=== PATIENT | male | born 1985 | race Two or more races ===

== ENCOUNTER 2019-10-29 13:21 | Inpatient (IN) | payer OTHER ==
[~2019-10-29] VITALS: Ht 167.6 cm; Wt 57.7 kg
[~2019-10-29 13:21] MED LIST: ATO40T PO; INSLANTI SC; LEVO500T21 PO; PANT40TA2 PO
[2019-10-29] MEDS ORDERED: PROMETHAZINE HCL 25 MG/ML 1ML IV ONE (13:45)
[2019-10-29] MEDS ORDERED: SODIUM CHLORIDE 0.9% 1,000 ML IV ONE ×3 (13:45→16:30)
[2019-10-29] MEDS ORDERED: MORPHINE SULF INJ 2 MG/ML SYRINGE 1ML IV ONE (13:45)
[2019-10-29] MEDS ORDERED: PROMETHAZINE HCL 25 MG/ML 1ML ONE (13:46)
[2019-10-29 14:09] LABS: Basophils # (auto) 0.1 10 ^3/uL (0-0.2); Basophils % (auto) 0.4 % (0.0-2.0); Eosinophils # (auto) 0 10 ^3/uL (0-0.8); Hemoglobin 16.2 g/dL (13.5-17.5); Lymphocytes # (auto) 1.2 10 ^3/uL (0.4-5.4); Lymphocytes % (auto) 5.5 % (10.0-50.0); Mean Corpuscular Hgb Conc. 34.5 g/dL (32.0-36.0); Mean Corpuscular Volume 89.7 fL (80.0-100.0); Monocytes # (auto) 2.5 10 ^3/uL (0-1.3); Monocytes % (auto) 11.4 % (0.0-12.0); Neutrophils # (auto) 18.2 10 ^3/uL (1.6-8.6); Neutrophils % (auto) 82.7 % (37.0-80.0); Platelet Count (auto) 312 10^3/uL (140-450); Red Blood Cells 5.24 10^6/uL (4.5-5.90); Red Cell Distribution Width 12.8 % (11.8-14.3); White Blood Cell 22.1 10^3/uL (4.4-10.8)
[2019-10-29 14:25] LABS: Albumin 3.7 g/dL (3.4-5.0); Anion Gap 18 (5-15); Calcium 9.1 mg/dL (8.5-10.1); Carbon Dioxide 26 mmol/L (21-32); Chloride 88 mmol/L (98-107); Magnesium 1.5 mg/dL (1.6-2.6); Potassium 3.3 mmol/L (3.5-5.1); Sodium 132 mmol/L (136-145)
[2019-10-29 14:28] LABS: Alanine Aminotransferase 53 U/L (16-61); Aspartate Aminotransferase 13 U/L (15-37); Bilirubin, Total 2.6 mg/dL (0.2-1.0); GFR African American 90 mL/min; GFR Non-African American 74 mL/min; Total Protein 8.3 g/dL (6.4-8.2)
[2019-10-29 14:29] LABS: INR 1.06 (0.9-1.15); Partial Thromboplastin Time 26.3 sec (23.64-32.05)
[2019-10-29] MEDS ORDERED: InsuLIN R (HUMAN) 100 UNITS in SODIUM CHL 0.9% 99 ML IV SCH (14:33)
[2019-10-29 14:34] LABS: Alkaline Phosphatase 120 U/L (45-117)
[2019-10-29] MEDS ORDERED: DEXTROSE (50%) 50ML SYRG IV PRN ×2 (14:45→16:30)
[2019-10-29 14:52] LABS: Glucose 515 mg/dL (74-106)
[2019-10-29] MEDS: SODIUM CHLORIDE 0.9% 1,000 ML IV SCH ×2 (14:59→16:34)
[2019-10-29] MEDS ORDERED: ONDANSETRON HCL 4 MG/2 ML VIAL IV ONE (15:15)
[2019-10-29] MEDS ORDERED: PANTOPRAZOLE 40 MG/10 ML VIAL INJ IV ONE ×2 (15:15→16:30)
[2019-10-29] MEDS: ACCU-CHEK COMFORT CURVE STRIP VI SCH ×5 (15:25→23:38)
[2019-10-29 15:36] LABS: BUN/Creatinine Ratio 9.1; Blood Urea Nitrogen 11 mg/dL (7-18)
[2019-10-29] MEDS ORDERED: LACTULOSE 20Gm/30ML SOLN PO PRN (16:30)
[2019-10-29] MEDS ORDERED: cefTRIAXone 1GM/50ML D5W 50 ML IV ONE ×2 (16:30→16:36)
[2019-10-29] MEDS ORDERED: MORPHINE SULF INJ 2 MG/ML SYRINGE 1ML IV PRN (16:30)
[2019-10-29] MEDS ORDERED: NITROGLYCERIN 0.4 MG SL TAB SL PRN (16:30)
[2019-10-29] MEDS: SOD CHL 0.9%/ KCL 40MEQ 1,000 ML IV SCH (16:30)
[2019-10-29] MEDS ORDERED: INSULIN LANTUS (GLARGINE) 1 /0.01ml (100units/ml) SC ONE (16:30)
[2019-10-29] MEDS ORDERED: ALBUTEROL SULF 2.5 MG/0.5ML(0.5%) NEB SOLN NEB PRN (16:30)
[2019-10-29] MEDS ORDERED: MAGNESIUM SULFATE 1GM/100ML 100 ML IV ONE (17:01)
[2019-10-29] MEDS: MAGNESIUM SULFATE 1GM/100ML 100 ML IV SCH ×2 (17:04→18:02)
[2019-10-29] MEDS: LORazepam 2MG/ML-1ML VIAL IV PRN (17:14)
[2019-10-29] MEDS: MORPHINE SULF INJ 2 MG/ML SYRINGE 1ML IV PRN (17:22)
[2019-10-29] MEDS ORDERED: THIAMINE 100mg/ml INJ (200mg/2ml VIAL) IV ONE (17:45)
[2019-10-29] MEDS ORDERED: chlordiazePOXIDE HCL 25 MG CAP PO PRN (17:45)
[2019-10-29] MEDS ORDERED: chlordiazePOXIDE HCL 5 MG CAP PO ONE (17:45)
[2019-10-29 18:11] LABS: Alcohol, Urine < 3.0 mg/dL (0-5); Amphetamine Screen, Urine POSITIVE (NEGATIVE); Barbiturate Scree,Urine NEGATIVE (NEGATIVE); Benzodiazephine Screen, Urine NEGATIVE (NEGATIVE); Cannabinoid Screen, Urine NEGATIVE (NEGATIVE); Cocaine Screen, Urine NEGATIVE (NEGATIVE); Opiate Scree,Urine NEGATIVE (NEGATIVE); Urine Bacteria NONE SEEN /hpf (None Seen); Urine Blood Negative /uL (Negative); Urine WBC 14 /hpf (0 - 3)
[2019-10-29 18:18] LABS: Phencyclidine Screen, Urine NEGATIVE (NEGATIVE)
[2019-10-29] MEDS ORDERED: ACETAMINOPHEN 650 mg PER 20 mL UD ONE (18:30)
[2019-10-29] MEDS: ACETAMINOPHEN 325 MG TAB PO PRN ×2 (18:33→22:22)
[2019-10-29] MEDS ORDERED: SODIUM CHLORIDE 0.9% 1,000 ML IV SCH ×2 (18:33→20:33)
[2019-10-29 19:15] LABS: Hematocrit 40.6 % (41.0-53.0)
[2019-10-29] MEDS: InsuLIN REG 1unit/0.01ml Soln (100units/ml) SC SCH ×2 (21:19→23:40)
[2019-10-29 22:01] LABS: BUN/Creatinine Ratio 7.7; Calcium 8.5 mg/dL (8.5-10.1); Potassium 4.1 mmol/L (3.5-5.1)
[2019-10-29] MEDS: metroNIDAZOLE 500MG/100ML 100 ML IV SCH (22:20)
[2019-10-29] MEDS: PANTOPRAZOLE 40 MG/10 ML VIAL INJ IV SCH (22:21)
[2019-10-29] MEDS: INSULIN LANTUS (GLARGINE) 1 /0.01ml (100units/ml) SC SCH (22:22)
--- NOTE | 2019-10-29 22:39 | NUR ---
RT NOTE: PT ON ROOM AIR SPO2 98% HR 132, RR 20. BS DIMINISHED. PT DENIES SOB. NO TX GIVEN AT THIS TIME. MED NEB TX SETUP PLACED AT BEDSIDE IF NEEDED.
[2019-10-29] MEDS: chlordiazePOXIDE HCL 5 MG CAP PO SCH (23:39)
[2019-10-30] VITALS (7 sets, daily range): BP systolic 100–150; BP diastolic 57–98
[2019-10-30] MEDS: SOD CHL 0.9%/ KCL 40MEQ 1,000 ML IV SCH ×4 (00:56→20:13)
[2019-10-30] MEDS: traMADol HCL 50 MG TAB PO PRN (01:51)
[2019-10-30 02:09] LABS: Hematocrit 40.3 % (41.0-53.0); Hemoglobin 13.5 g/dL (13.5-17.5)
[2019-10-30] MEDS: MORPHINE SULF INJ 2 MG/ML SYRINGE 1ML IV PRN (02:10)
[2019-10-30] MEDS: LORazepam 2MG/ML-1ML VIAL IV PRN (02:11)
[2019-10-30] MEDS: PROMETHAZINE HCL 25 MG/ML 1ML IV PRN (02:11)
[2019-10-30 02:27] LABS: Calcium 8.4 mg/dL (8.5-10.1); Potassium 3.9 mmol/L (3.5-5.1)
[2019-10-30] MEDS: InsuLIN REG 1unit/0.01ml Soln (100units/ml) SC SCH ×6 (04:00→23:55)
--- NOTE | 2019-10-30 04:28 | NUR ---
Admit to [facility] MISHAFLORIN AntonioGO admitted to [facility] via jose on dinkey operator slate. Patient transferred to bed, connected to unit monitoring and oxygen, and weighed by bed scale. Patient oriented to Vandana richter RN, unit, room. Pt was very drowsy and slurred speech. Pt received Ativan and Morphine prior admission, in ER. Will give more information to patient when Pt wake up more.
[2019-10-30] MEDS: ACCU-CHEK COMFORT CURVE STRIP VI SCH ×6 (04:57→23:54)
--- NOTE | 2019-10-30 06:05 | NUR ---
Summary Pt still drowsy, woke up and asked for pain medicine right away and slept right away. Pt still easily fell asleep. Attempted to ask admission questions as many as possible. Pt with slurred speech, A&O x1 to self. Pt tried to pull NG once, re-oriented Pt. Continue care and will endorse to day nurse. IV insertion IV access obtained, via clean sterile technique by inserting 20 gauge catheter at left hand after 1 attempt(s) for antibiotic. IV secured properly. No trauma to site. Patient tolerated procedure well.
[2019-10-30] MEDS: metroNIDAZOLE 500MG/100ML 100 ML IV SCH ×3 (06:33→22:12)
[2019-10-30] MEDS: chlordiazePOXIDE HCL 5 MG CAP PO SCH ×4 (06:37→23:53)
[2019-10-30] MEDS: INSULIN LANTUS (GLARGINE) 1 /0.01ml (100units/ml) SC SCH ×2 (07:00→23:10)
[2019-10-30] MEDS: THIAMINE 100mg/ml INJ (200mg/2ml VIAL) IV SCH (09:16)
[2019-10-30] MEDS: PANTOPRAZOLE 40 MG/10 ML VIAL INJ IV SCH ×2 (09:16→22:13)
[2019-10-30] MEDS: cefTRIAXone 1GM/50ML D5W 50 ML IV SCH (09:17)
[2019-10-30 09:28] LABS: Basophils # (auto) 0 10 ^3/uL (0-0.2); Basophils % (auto) 0.3 % (0.0-2.0); Eosinophils # (auto) 0 10 ^3/uL (0-0.8); Hematocrit 41.1 % (41.0-53.0); Hemoglobin 13.9 g/dL (13.5-17.5); Lymphocytes % (auto) 6.3 % (10.0-50.0); Mean Corpuscular Hemoglobin 30.6 pg (28.0-32.0); Mean Corpuscular Hgb Conc. 33.8 g/dL (32.0-36.0); Mean Corpuscular Volume 90.5 fL (80.0-100.0); Monocytes # (auto) 1.7 10 ^3/uL (0-1.3); Monocytes % (auto) 10.2 % (0.0-12.0); Neutrophils # (auto) 13.4 10 ^3/uL (1.6-8.6); Neutrophils % (auto) 83.2 % (37.0-80.0); Platelet Count (auto) 217 10^3/uL (140-450); Red Blood Cells 4.54 10^6/uL (4.5-5.90); Red Cell Distribution Width 12.7 % (11.8-14.3); White Blood Cell 16.2 10^3/uL (4.4-10.8)
[2019-10-30 09:42] LABS: Albumin 2.9 g/dL (3.4-5.0); Calcium 8.6 mg/dL (8.5-10.1); Potassium 4.3 mmol/L (3.5-5.1)
[2019-10-30 09:46] LABS: BUN/Creatinine Ratio 8.8; Bilirubin, Total 1.9 mg/dL (0.2-1.0); Total Protein 7.1 g/dL (6.4-8.2)
[2019-10-30] MEDS ORDERED: PANTOPRAZOLE 40 MG/10 ML VIAL INJ IV SCH (10:00)
--- NOTE | 2019-10-30 12:20 | NUR ---
GI CONSULT CALLED TO DR. KWAN RE: ABD PAIN. MSG LEFT WITH EXCHANGE.
--- NOTE | 2019-10-30 12:56 | NUR ---
HOSPITALIST AT BEDSIDE. DR. HUANG UPDATED ON PATIENTS STATUS. Addendum: 10/30/19 at 1433 by Elizabeth Rasmussen RN PER ROX CERNA TO D/C NG AT THIS TIME. APPROX 100CC OF YELLOW GASTRIC CONTENTS NOTED WHILE ON LIS. PT DENIES ANY ABD PAIN. PT ONLY STATES SORE THROAT. EDUCATED PATIENT SORE THROAT CAN BE FROM IRRITATION OF NG. PT VERBALIZED UNDERSTANDING.
--- NOTE | 2019-10-30 14:31 | NUR ---
DR. KWAN AT BEDSIDE. UPDATED ON PATIENTS STATUS. NEW ORDER TO INCREASE DIET TOLERATED. PT CONTINUES TO DENY ANY ABD PAIN. NO BLEEDING NOTED.
--- NOTE | 2019-10-30 14:45 | NUR ---
PATIENT TOLERATING ICE CHIPS. DENIES ANY N/V. NO BLEEDING.
[2019-10-30] MEDS: SUCRALFATE 1 GM/10 ML ORAL SUSP PO SCH ×2 (16:59→22:12)
[2019-10-30] MEDS: ACETAMINOPHEN 325 MG TAB PO PRN (17:07)
--- NOTE | 2019-10-30 17:16 | NUR ---
TEMPERATURE PATIENT NOTED TO HAVE LOW GRADE FEVER 100.2. PRN TYLENOL GIVEN.
--- NOTE | 2019-10-30 17:20 | NUR ---
REPORT REPORT GIVEN TO SELINA SALCEDO. UPDATED ON PLAN OF CARE. QUESTIONS AND CONCERNS ADDRESSED. PT TO BE TRANSFERRED VIA BED TO [facility]. ALL BELONGINGS WITH PATIENT. PT AWARE OF ROOM NUMBER AND SHOWN HOW TO USE BEDSIDE TELEPHONE TO CALL FAMILY AND NOTIFY OF ROOM CHANGE. PT VERBALIZED UNDERSTANDING.
--- NOTE | 2019-10-30 17:22 | NUR ---
REPORT OBTAINED BY [facility] NURSE PATIENT SLEEPING AT THIS TIME. PT NOTED ST 101-108. BP STABLE. NG IN PLACE TO LIS. BED IN LOWEST POSITION. CALL LIGHT AT REACH. SEE FURTHER NOTES. Addendum: 10/30/19 at 1723 by Elizabeth Rasmussen RN TIME CHANGE TO 0730
--- NOTE | 2019-10-30 17:54 | NUR ---
RECEIVED REPORT AND ASSUMED CARE OF PT. PT ARRIVED UNIT VIA W/C. A/OX4. DENIED S/S ACUTE DISTRESS. DENIED CP/SOB/N/V/DIZZINESS AT THIS TIME. ORIENTED PT TO ROOM AND MADE COMFORTABLE IN BED.BED AT LOWEST POSITION. CALL LIGHT AND BELONGINGS WITHIN REACH. WILL CONT TO MONITOR.
--- NOTE | 2019-10-30 20:00 | NUR ---
Opening Shift Note Assumed care of patient, awake and alert. No S/S of distress/SOB or pain. Instructed on POC and to call for assist PRN, will continue to monitor for changes Q1hr and PRN.
--- NOTE | 2019-10-31 01:07 | NUR ---
Respiratory note: NO PRN TX GIVEN AT THIS TIME, NOT INDICATED. NO SOB NOTED, SPO2 95% ON RA, HR 102, RR 20.
[2019-10-31] MEDS: MORPHINE SULF INJ 2 MG/ML SYRINGE 1ML IV PRN ×2 (02:56→11:52)
[2019-10-31] MEDS: PROMETHAZINE HCL 25 MG/ML 1ML IV PRN ×3 (03:10→19:50)
[2019-10-31] MEDS: InsuLIN REG 1unit/0.01ml Soln (100units/ml) SC SCH ×5 (04:36→21:42)
[2019-10-31] MEDS: ACCU-CHEK COMFORT CURVE STRIP VI SCH ×5 (04:36→21:41)
[2019-10-31 05:00] VITALS: BP 118/74
[2019-10-31] MEDS: metroNIDAZOLE 500MG/100ML 100 ML IV SCH ×3 (06:13→21:34)
[2019-10-31] MEDS: chlordiazePOXIDE HCL 5 MG CAP PO SCH ×3 (06:14→17:29)
[2019-10-31 06:30] LABS: Basophils # (auto) 0.1 10 ^3/uL (0-0.2); Basophils % (auto) 0.6 % (0.0-2.0); Eosinophils # (auto) 0 10 ^3/uL (0-0.8); Eosinophils % (auto) 0.3 % (0.0-7.0); Hematocrit 37.2 % (41.0-53.0); Hemoglobin 12.7 g/dL (13.5-17.5); Lymphocytes # (auto) 1.1 10 ^3/uL (0.4-5.4); Mean Corpuscular Hgb Conc. 34.2 g/dL (32.0-36.0); Mean Corpuscular Volume 90.6 fL (80.0-100.0); Monocytes # (auto) 1.1 10 ^3/uL (0-1.3); Monocytes % (auto) 9.4 % (0.0-12.0); Neutrophils # (auto) 9.9 10 ^3/uL (1.6-8.6); Neutrophils % (auto) 80.7 % (37.0-80.0); Nucleated Red Blood Cells % 0.1 %; Platelet Count (auto) 202 10^3/uL (140-450); Red Blood Cells 4.11 10^6/uL (4.5-5.90); Red Cell Distribution Width 12.7 % (11.8-14.3); White Blood Cell 12.2 10^3/uL (4.4-10.8)
[2019-10-31] MEDS: SUCRALFATE 1 GM/10 ML ORAL SUSP PO SCH ×4 (06:42→21:34)
[2019-10-31] MEDS: SOD CHL 0.9%/ KCL 40MEQ 1,000 ML IV SCH (06:44)
[2019-10-31 06:54] LABS: Potassium 4.3 mmol/L (3.5-5.1)
[2019-10-31 07:03] LABS: BUN/Creatinine Ratio 10.5; Calcium 8.9 mg/dL (8.5-10.1)
[2019-10-31] MEDS: INSULIN LANTUS (GLARGINE) 1 /0.01ml (100units/ml) SC SCH ×2 (07:11→21:41)
--- NOTE | 2019-10-31 08:00 | NUR ---
OPENING SHIFT NOTE ASSUMED CARE OF PATIENT SLEEPING WITH EVEN RESPIRATIONS. BED IS IN LOWEST, LOCKED POSITION WITH SIDE RAILS UP X2 AND CALL LIGHT WITHIN REACH. WILL CONTINUE TO MONITOR Q1H AND PRN.
[2019-10-31 09:25] VITALS: BP 120/68
[2019-10-31] MEDS: cefTRIAXone 1GM/50ML D5W 50 ML IV SCH (09:29)
[2019-10-31] MEDS: THIAMINE 100mg/ml INJ (200mg/2ml VIAL) IV SCH (09:30)
[2019-10-31] MEDS: PANTOPRAZOLE 40 MG/10 ML VIAL INJ IV SCH ×2 (09:30→21:34)
[2019-10-31 12:46] VITALS: BP 127/75
--- NOTE | 2019-10-31 14:10 | NUR ---
AT BEDSIDE DR HUANG AT BEDSIDE UPDATING PATIENT ON POC. NEW ORDERS RECEIVED, WILL CARRY OUT. CONTINUE CARE.
--- NOTE | 2019-10-31 14:51 | NUR ---
RT NOTE: NO TX INDICATED AT THIS TIME. NO SIGNS OF RESPIRATORY DISTRESS NOTED. LUNG SOUNDS CLEAR T/O. ON RA, SPO2 98 HR 71 RR 16. PT AWARE TO CALL FOR RESPIRATORY IF NEED FOR TX ARISES. WILL CONTINUE TO MONITOR.
[2019-10-31 16:38] VITALS: BP 122/67
[2019-10-31] MEDS ORDERED: IPRATROPIUM BROM 0.5 MG/2.5ML INH SOL ONE (16:42)
[2019-10-31 22:52] VITALS: BP 111/58
[2019-11-01] MEDS: chlordiazePOXIDE HCL 5 MG CAP PO SCH ×5 (00:05→23:10)
[2019-11-01] MEDS: PROMETHAZINE HCL 25 MG/ML 1ML IV PRN ×3 (00:30→20:46)
--- NOTE | 2019-11-01 02:45 | NUR ---
RT NOTE: PT ASSESSED FOR PRN BREATHING TX. PRN TX NOT INDICATED. PT RESTING COMFORTABLY. SPO2 95% ON ROOM AIR, HR 90. SO SOB OR DISTRESS NOTED.
[2019-11-01 05:03] VITALS: BP 123/62
[2019-11-01] MEDS: metroNIDAZOLE 500MG/100ML 100 ML IV SCH ×3 (06:29→22:20)
[2019-11-01] MEDS: InsuLIN REG 1unit/0.01ml Soln (100units/ml) SC SCH ×4 (06:29→22:40)
[2019-11-01] MEDS: SUCRALFATE 1 GM/10 ML ORAL SUSP PO SCH ×4 (06:29→22:21)
[2019-11-01] MEDS: INSULIN LANTUS (GLARGINE) 1 /0.01ml (100units/ml) SC SCH ×2 (06:29→22:39)
[2019-11-01] MEDS: ACCU-CHEK COMFORT CURVE STRIP VI SCH ×4 (06:30→22:21)
--- NOTE | 2019-11-01 08:00 | NUR ---
OPENING SHIFT NOTE ASSUMED CARE OF PATIENT AWAKE AND ALERT. NO S/S OF DISTRESS NOTED. PATIENT HAS A COMPLAINT OF 8/10 ABDOMINAL PAIN. WILL MEDICATE PER MD ORDER AND MAR. PATIENT UPDATED ON POC FOR THE DAY AND ALL QUESTIONS ANSWERED. BED IS IN LOWEST, LOCKED POSITION WITH SIDE RAILS UP X2 AND CALL LIGHT WITHIN REACH. WILL CONTINUE TO MONITOR Q1H AND PRN.
[2019-11-01] MEDS: cefTRIAXone 1GM/50ML D5W 50 ML IV SCH (08:18)
[2019-11-01] MEDS: MORPHINE SULF INJ 2 MG/ML SYRINGE 1ML IV PRN ×2 (08:19→20:46)
[2019-11-01 09:00] VITALS: BP 114/66
[2019-11-01] MEDS: THIAMINE 100mg/ml INJ (200mg/2ml VIAL) IV SCH (09:25)
[2019-11-01] MEDS: PANTOPRAZOLE 40 MG/10 ML VIAL INJ IV SCH ×2 (09:25→22:21)
--- NOTE | 2019-11-01 10:00 | NUR ---
IV REMOVAL IV TO LEFT HAND IS SHOWING SIGNS OF PHLEBITIS; SITE IS TENDER AND RED. IV DISCONTINUED WITH CATHETER INTACT AND PRESSURE DRESSING APPLIED, PATIENT TOLERATED WELL.
[2019-11-01 13:00] VITALS: BP 135/91
--- NOTE | 2019-11-01 13:15 | NUR ---
Respiratory note: PT ASSESSED FOR PRN TX. PT FOUND ON RA SP02 96% AND BREATH SOUNDS ARE CLEAR. PT IS RESTING COMFORTABLE AND IN NO DISTRESS AT THIS TIME. NO TREATMENT INDICATED AT THIS TIME.
[2019-11-01 13:28] LABS: Basophils # (auto) 0 10 ^3/uL (0-0.2); Basophils % (auto) 0.3 % (0.0-2.0); Eosinophils # (auto) 0.1 10 ^3/uL (0-0.8); Hematocrit 35.7 % (41.0-53.0); Hemoglobin 12.2 g/dL (13.5-17.5); Lymphocytes # (auto) 1.1 10 ^3/uL (0.4-5.4); Lymphocytes % (auto) 16.5 % (10.0-50.0); Mean Corpuscular Hemoglobin 30.8 pg (28.0-32.0); Mean Corpuscular Hgb Conc. 34.3 g/dL (32.0-36.0); Mean Corpuscular Volume 89.9 fL (80.0-100.0); Monocytes # (auto) 0.8 10 ^3/uL (0-1.3); Monocytes % (auto) 12.2 % (0.0-12.0); Neutrophils # (auto) 4.6 10 ^3/uL (1.6-8.6); Nucleated Red Blood Cells % 0.1 %; Platelet Count (auto) 212 10^3/uL (140-450); Red Blood Cells 3.97 10^6/uL (4.5-5.90); Red Cell Distribution Width 12.7 % (11.8-14.3); White Blood Cell 6.6 10^3/uL (4.4-10.8)
--- NOTE | 2019-11-01 13:30 | NUR ---
PAGED PAGED DR HUANG REGARDING POTASSIUM VALUE. AWAITING CALL BACK.
[2019-11-01 13:47] LABS: Potassium 3.4 mmol/L (3.5-5.1)
[2019-11-01 13:50] LABS: Calcium 8.5 mg/dL (8.5-10.1)
--- NOTE | 2019-11-01 13:54 | NUR ---
Received social service consult for pt who has an Etoh Issue. Pt states he lives with his parents. He does not work and states he does drink alcohol eveery day. Pt is reluctant to discuss personal issues. Gave pt resources,, [facility] [phone], [facility] [place], and [facility] in [facility], [phone]. print binding worker gave pt a large packet of resources which he accepted. Addendum: 11/01/19 at 1401 by TAMIKO BERRY SS Amended: Links added.
--- NOTE | 2019-11-01 15:30 | NUR ---
PAGED DR HUANG REPAGED REGARDING POTASSIUM LEVEL. AWAITING CALL BACK.
[2019-11-01] MEDS ORDERED: POTASSIUM CHL 20 Meq TABLET PO ONE (15:45)
--- NOTE | 2019-11-01 15:45 | NUR ---
MD CALLED BACK RECEIVED CALL FROM DR HUANG AND RECEIVED NEW ORDERS. WILL CARRY OUT AND CONTINUE CARE.
[2019-11-01 16:28] VITALS: BP 119/71
--- NOTE | 2019-11-01 19:10 | NUR ---
ASSESSED PT @ THIS TIME FOR PRN MED NEB TX. PT IS RESTING COMFORTABLY IN BED. HE STATES HIS BREATHING IS DOING FINE. CURRENTLY ON R/A SPO2 94%, HR 99, RR 16 AND BS ARE DIMINISHED T/O. NO DISTRESS NOTED. HE IS AWARE TO CALL IF HE FEEL SOB.
[2019-11-01 20:05] VITALS: BP 116/62
--- NOTE | 2019-11-01 20:05 | NUR ---
Opening Shift Note Assumed care of patient, awake and alert. No S/S of distress/SOB. Patient is on room air. Respirations even and unlabored. Instructed on POC and to call for assist PRN, will continue to monitor for changes Q1hr and PRN.
[2019-11-01 21:38] VITALS: BP 116/62
[2019-11-01] MEDS: traMADol HCL 50 MG TAB PO PRN (23:08)
--- NOTE | 2019-11-01 23:08 | NUR ---
Patient medicated with Ultram for 7/10 stomach pain due to PRN medication for severe pain 7-10 not being due. Patient agrees to take Ultram.
--- NOTE | 2019-11-02 00:08 | NUR ---
Patient has no complaints of pain at this time.
[2019-11-02] MEDS: PROMETHAZINE HCL 25 MG/ML 1ML IV PRN ×3 (00:51→11:15)
[2019-11-02 04:23] VITALS: BP 116/62
[2019-11-02 05:05] VITALS: BP 123/73
[2019-11-02] MEDS: chlordiazePOXIDE HCL 5 MG CAP PO SCH ×2 (05:49→11:19)
--- NOTE | 2019-11-02 06:00 | NUR ---
IV removal due to leakage and bleeding IV DC'd with clean sterile technique, catheter fully intact. Pressure dressing applied to site. Patient tolerated well.
--- NOTE | 2019-11-02 06:20 | NUR ---
IV insertion IV access obtained, via clean sterile technique by inserting 20 gauge catheter at right AC after 1 attempt. IV secured properly. No trauma to site. Patient tolerated well.
[2019-11-02] MEDS: metroNIDAZOLE 500MG/100ML 100 ML IV SCH ×2 (06:29→13:25)
[2019-11-02] MEDS: SUCRALFATE 1 GM/10 ML ORAL SUSP PO SCH ×3 (06:29→16:44)
[2019-11-02] MEDS: ACCU-CHEK COMFORT CURVE STRIP VI SCH ×3 (06:30→16:45)
[2019-11-02] MEDS: InsuLIN REG 1unit/0.01ml Soln (100units/ml) SC SCH ×3 (06:30→16:45)
[2019-11-02] MEDS: MORPHINE SULF INJ 2 MG/ML SYRINGE 1ML IV PRN (06:30)
[2019-11-02] MEDS: INSULIN LANTUS (GLARGINE) 1 /0.01ml (100units/ml) SC SCH (06:31)
--- NOTE | 2019-11-02 07:00 | NUR ---
CLOSING NOTE No S/S of distress/SOB. Patient is on room air. Respirations even and unlabored.
--- NOTE | 2019-11-02 07:31 | NUR ---
Opening Note Assumed pt care from [facility] nurse. Pt is a/ox4 with no s/s of distress or SOB. Pt is currently laying in bed with no complaints at this time. Discussed POC with pt; pt verbalized understanding. Safety measures maintained with call light within reach, bed in lowest position and side rails up. Will continue to monitor.
[2019-11-02] MEDS: cefTRIAXone 1GM/50ML D5W 50 ML IV SCH (08:21)
[2019-11-02 09:00] VITALS: BP 113/74
[2019-11-02] MEDS: PANTOPRAZOLE 40 MG/10 ML VIAL INJ IV SCH (09:04)
[2019-11-02] MEDS: THIAMINE 100mg/ml INJ (200mg/2ml VIAL) IV SCH (09:04)
--- NOTE | 2019-11-02 11:47 | NUR ---
Dr Ramesh at Bedside MD to see pt. Plans to d/c pt home. Will implement and follow through.
--- NOTE | 2019-11-02 12:50 | NUR ---
Respiratory note: ASSESSED PT FOR PRN MED NEB TX. PT IS RESTING COMFORTABLY IN BED. HE STATES HIS BREATHING IS DOING FINE. CURRENTLY ON R/A SPO2 97%, HR 88, RR 16 AND BS ARE DIMINISHED T/O. NO DISTRESS NOTED. HE IS AWARE TO HAVE RT PAGED IF TX IS NEEDED.
[2019-11-02 13:00] VITALS: BP 108/58
[2019-11-02] MEDS ORDERED: PANT40TA2 PO (14:53)
[2019-11-02] MEDS ORDERED: SUCR1TAB22 PO (14:53)
[2019-11-02] MEDS ORDERED: ONDA-144 PO (14:53)
[2019-11-02 15:04] VITALS: BP 113/74
--- NOTE | 2019-11-02 15:15 | NUR ---
IV and Tele 65 D/C'ed Iv to pt's R FA removed, fully intact. Site is asymptomatic. Pressure was applied to site for 3 minutes with gauze and then wrapped in coban. Pt instructed to keep dressing on for 30 minutes. Tele 65 removed and sent back to ICU Staff made aware.
--- NOTE | 2019-11-02 15:20 | NUR ---
Pt D/C Pt states that he has a ride, just waiting for them to get to facility to pick him up.
--- NOTE | 2019-11-02 15:45 | NUR ---
Nutrition Assessment Notes Please refer to link for full assessment notes. Est energy needs: [id number] kcals (25-30 kcal/kgBW) Est protein needs: 46-58 gms/day (0.8-1.0 gm/kgBW) Will continue to monitor and reassess prn. Addendum: 11/02/19 at [address] Amended: Links added.
[2019-11-02 16:39] VITALS: BP 115/70
--- NOTE | 2019-11-02 17:37 | NUR ---
PT D/C'ED OFF UNIT PT D/C'ED OFF UNIT. PT AMBULATED WITHOUT DIFFICULTY. PT IS A/OX4 WITH NO S/S OF DISTRESS OR SOB. IV AND TELE BOX D/C'ED PRIOR TO EXIT. PT HAS ALL BELONGINGS, EDUCATION MATERIAL, PRESCRIPTIONS AND ALL QUESTIONS WERE ANSWERED.
== END 2019-11-02 17:37 | disposition home or self-care (01) | DRG 241 ==
LOC: EDBD 13:21 → ER 13:21 → TELE 13:22 → DOU IN ICU 10-30 04:33 → WEST WING 10-30 17:35 → TELE-WESTW 10-31 08:03
PROVIDERS: ADMIT Internal Medicine; ATTEND Internal Medicine Nephrology
DX: K29.70 Gastritis, unspecified, without bleeding (principal); E10.10 Type 1 diabetes mellitus with ketoacidosis without coma; I85.00 Esophageal varices without bleeding; R65.10 Systemic inflammatory response syndrome (SIRS) of non-infectious origin without acute organ dysfunction; E83.42 Hypomagnesemia; K86.1 Other chronic pancreatitis; K76.0 Fatty (change of) liver, not elsewhere classified; K20.9 Esophagitis, unspecified; N39.0 Urinary tract infection, site not specified; R10.13 Epigastric pain; D72.829 Elevated white blood cell count, unspecified; R11.14 Bilious vomiting; E87.6 Hypokalemia; N20.0 Calculus of kidney; F10.20 Alcohol dependence, uncomplicated; F15.90 Other stimulant use, unspecified, uncomplicated; E78.00 Pure hypercholesterolemia, unspecified; K21.9 Gastro-esophageal reflux disease without esophagitis; F19.10 Other psychoactive substance abuse, uncomplicated; Z91.19 Patient's noncompliance with other medical treatment and regimen; Z83.3 Family history of diabetes mellitus; Z82.49 Family history of ischemic heart disease and other diseases of the circulatory system
CPT/HCPCS: 36415; 36600; 71046; 74176; 80048; 80053; 80307; 81001; 82010; 82150; 82805; 82962; 83036; 83605; 83690; 83735; 84443; 84484; 85014; 85018; 85025; 85045; 85610; 85730; 87040; 93005; 94640; 96374; 96375; 99291; C9113; G0378; J0696; J1815; J2405; J3490

== ENCOUNTER 2019-12-15 21:07 | Inpatient (IN) | payer OTHER ==
[~2019-12-15] VITALS: Ht 167.6 cm; Wt 58.2 kg
[~2019-12-15 21:07] MED LIST changes: -LEVO500T21 PO; +ONDA-144 PO; +SUCR1TAB38 PO
[2019-12-15 22:16] LABS: Basophils # (auto) 0 10 ^3/uL (0-0.2); Basophils % (auto) 0.3 % (0.0-2.0); Eosinophils # (auto) 0 10 ^3/uL (0-0.8); Eosinophils % (auto) 0.2 % (0.0-7.0); Hematocrit 45.7 % (41.0-53.0); Hemoglobin 15.4 g/dL (13.5-17.5); Lymphocytes # (auto) 2.2 10 ^3/uL (0.4-5.4); Mean Corpuscular Hemoglobin 30.4 pg (28.0-32.0); Mean Corpuscular Hgb Conc. 33.7 g/dL (32.0-36.0); Mean Corpuscular Volume 90.1 fL (80.0-100.0); Monocytes # (auto) 1.6 10 ^3/uL (0-1.3); Monocytes % (auto) 12.1 % (0.0-12.0); Neutrophils # (auto) 9.7 10 ^3/uL (1.6-8.6); Neutrophils % (auto) 71.4 % (37.0-80.0); Platelet Count (auto) 287 10^3/uL (140-450); Red Blood Cells 5.07 10^6/uL (4.5-5.90); Red Cell Distribution Width 12.9 % (11.8-14.3); White Blood Cell 13.6 10^3/uL (4.4-10.8)
[2019-12-15 22:38] LABS: Albumin 3.6 g/dL (3.4-5.0); Amylase 13 U/L (25-115); Anion Gap 12 (5-15); Blood Urea Nitrogen 13 mg/dL (7-18); Calcium 9.3 mg/dL (8.5-10.1); Carbon Dioxide 23 mmol/L (21-32); Chloride 96 mmol/L (98-107); Glucose 348 mg/dL (74-106); Lipase 24 U/L (73-393); Magnesium 1.6 mg/dL (1.6-2.6); Potassium 4.1 mmol/L (3.5-5.1); Sodium 131 mmol/L (136-145)
[2019-12-15 22:39] LABS: GFR African American 112 mL/min; GFR Non-African American 93 mL/min
[2019-12-15] MEDS ORDERED: cefTRIAXone 1GM/50ML D5W 50 ML IV ONE (22:45)
[2019-12-15] MEDS ORDERED: SODIUM CHLORIDE 0.9% 1,000 ML IV ONE (22:45)
[2019-12-15] MEDS ORDERED: ONDANSETRON HCL 4 MG/2 ML VIAL IV ONE (22:45)
[2019-12-15] MEDS ORDERED: PIPERACILLIN-TAZOB 3.375GM 100 ML IV ONE (22:45)
[2019-12-15 22:58] LABS: Alanine Aminotransferase 43 U/L (16-61); Alkaline Phosphatase 129 U/L (45-117); Aspartate Aminotransferase 11 U/L (15-37); Bilirubin, Total 1.5 mg/dL (0.2-1.0); Total Protein 8.8 g/dL (6.4-8.2)
[2019-12-15] MEDS ORDERED: MORPHINE SULFATE 4 MG/ML SYR/VIAL IV ONE (23:45)
[2019-12-16] VITALS (7 sets, daily range): BP systolic 125–154; BP diastolic 83–99
[2019-12-16] MEDS ORDERED: DOCUSATE SOD 100 MG CAP PO PRN (01:15)
[2019-12-16] MEDS ORDERED: DEXTROSE (50%) 50ML SYRG IV PRN (01:15)
[2019-12-16] MEDS ORDERED: SODIUM CHLORIDE 0.9% 1,000 ML IV ONE (01:15)
[2019-12-16] MEDS ORDERED: MORPHINE SULFATE 4 MG/ML SYR/VIAL IV ONE (01:30)
[2019-12-16] MEDS ORDERED: ONDANSETRON HCL 4 MG/2 ML VIAL IV ONE (01:30)
--- NOTE | 2019-12-16 01:49 | NUR ---
MS admit from ER AMADA OCHOA admitted to tele/MS after SBAR received. Patient oriented to Nataliya richter RN, unit, room, bed, and unit policies regarding patient care and visiting hours. Patient weighed by bed scale and encouraged to call if they need something. All questions and concerns addressed, patient verbalized understanding. Note: Came per wheelchair awake alert oriented x 4, not in respiratory distress, vital signs checked.
[2019-12-16] MEDS: ACETAMINOPHEN 325 MG TAB PO PRN ×2 (02:00→14:48)
--- NOTE | 2019-12-16 02:00 | NUR ---
Medicated with Tylenol 325mg.2 tab. for temperature of 100.3F.
--- NOTE | 2019-12-16 03:00 | NUR ---
Given ice chips to lisa.
--- NOTE | 2019-12-16 03:19 | NUR ---
Ice pack applied in the forehead and axilla .
[2019-12-16] MEDS: ACCU-CHEK COMFORT CURVE STRIP VI SCH ×6 (03:55→23:45)
[2019-12-16] MEDS: InsuLIN REG 1unit/0.01ml Soln (100units/ml) SC SCH ×6 (03:56→23:48)
[2019-12-16] MEDS: HYDROcodone-ACET 5/325MG TAB PO PRN (04:06)
[2019-12-16] MEDS: MORPHINE SULFATE 4 MG/ML SYR/VIAL IV PRN ×2 (05:20→09:58)
--- NOTE | 2019-12-16 05:20 | NUR ---
Medicated with Morphine 2mg.i.v.p. for abdominal pain level of 8/10,also given Zofran 4mg.iv.p for nausea at 0421,and at 0550, patient is not in pain noted, no vomiting noted.
[2019-12-16] MEDS: ONDANSETRON HCL 4 MG/2 ML VIAL IV PRN ×4 (05:21→20:09)
[2019-12-16 06:37] LABS: Basophils # (auto) 0 10 ^3/uL (0-0.2); Basophils % (auto) 0.3 % (0.0-2.0); Eosinophils # (auto) 0 10 ^3/uL (0-0.8); Eosinophils % (auto) 0.1 % (0.0-7.0); Hematocrit 42.8 % (41.0-53.0); Hemoglobin 14.4 g/dL (13.5-17.5); Lymphocytes # (auto) 1.6 10 ^3/uL (0.4-5.4); Lymphocytes % (auto) 11.2 % (10.0-50.0); Mean Corpuscular Hemoglobin 30.4 pg (28.0-32.0); Mean Corpuscular Hgb Conc. 33.7 g/dL (32.0-36.0); Mean Corpuscular Volume 90.1 fL (80.0-100.0); Monocytes # (auto) 2.1 10 ^3/uL (0-1.3); Monocytes % (auto) 14.3 % (0.0-12.0); Neutrophils # (auto) 10.7 10 ^3/uL (1.6-8.6); Neutrophils % (auto) 74.1 % (37.0-80.0); Nucleated Red Blood Cells % 0.1 %; Platelet Count (auto) 275 10^3/uL (140-450); Red Blood Cells 4.75 10^6/uL (4.5-5.90); Red Cell Distribution Width 13.3 % (11.8-14.3); White Blood Cell 14.4 10^3/uL (4.4-10.8)
[2019-12-16 07:09] LABS: BUN/Creatinine Ratio 11.1; Calcium 8.7 mg/dL (8.5-10.1)
--- NOTE | 2019-12-16 07:30 | NUR ---
Opening Note Assumed patient care from CHIN MARKS, Nelli.
--- NOTE | 2019-12-16 07:31 | NUR ---
Report given to Sonia Gonzalez, patient is resting in bed, no respiratory distress noted.
--- NOTE | 2019-12-16 08:00 | NUR ---
Patient Rounds Patient is currently sitting up in bed. Two episodes of vomiting. On first episode of emesis, patient had his finger in his mouth, and retching. Patient asked if he was having trouble and why he had his finger in his mouth, patient shook his head. Will continue to monitor.
[2019-12-16] MEDS: cefTRIAXone 1GM/50ML D5W 50 ML IV SCH (08:58)
[2019-12-16] MEDS: PANTOPRAZOLE 40 MG/10 ML VIAL INJ IV SCH (08:58)
[2019-12-16 10:29] LABS: Urine Bacteria FEW /hpf (None Seen); Urine Blood 1+ /uL (Negative); Urine Mucus FEW (None Seen); Urine Specific Gravity 1.031 (1.001-1.035); Urine WBC 143 /hpf (0 - 3)
--- NOTE | 2019-12-16 12:06 | NUR ---
WOUND CARE NOTE: Wound care in to see patient per wound care request regarding "Rt axilla abscess" . Bedside nurse took photograph of patient's skin issue upon admission for reference. Patient is 33 years old male admitted for Acute Abdominal Pain, Nausea and Vomiting. Patient with history of Arthritis, DM and High Lipids. Patient is resting in bed in Rm. 216B. Patient is awake, alert and oriented. Patient is in no stated pain at this time. He's self turning and repositioning and his Phillip score is 21. Patient's Rt axilla noted with 4x6 intact red, raised, lesion; area is bright red; no drainage/odor noted, left open to air. Patient reported that red lesion to Rt axilla for five days and reported that he may have been bitten by spider. NO other wound noted. No further wound care monitoring needed at this time as there's no open/draining wound. RECOMMENDATION: surgical consult, reconsult for active wound, pressure injury, Low Phillip score of 12 and below. Addendum: 12/16/19 at 1700 by Nguyen Schaffer RN Amended: Links added.
--- NOTE | 2019-12-16 12:15 | NUR ---
at bedside Dr. Cleary at bedside discussing plan of care with patient. New orders received, will carry out.
[2019-12-16 13:17] LABS: Alcohol, Urine < 3.0 mg/dL (0-5); Amphetamine Screen, Urine NEGATIVE (NEGATIVE); Barbiturate Scree,Urine NEGATIVE (NEGATIVE); Benzodiazephine Screen, Urine NEGATIVE (NEGATIVE); Cannabinoid Screen, Urine NEGATIVE (NEGATIVE); Cocaine Screen, Urine NEGATIVE (NEGATIVE); Opiate Scree,Urine POSITIVE (NEGATIVE); Phencyclidine Screen, Urine NEGATIVE (NEGATIVE)
--- NOTE | 2019-12-16 14:30 | NUR ---
US US at bedside.
[2019-12-16] MEDS: HYDROmorphone HCL 2 MG/ML VL IV PRN ×3 (14:48→23:44)
--- NOTE | 2019-12-16 14:48 | NUR ---
Pain and Nausea Patient currently complaining of pain and nausea. Patient has had four episodes of emesis, MD is aware. Patient complaint of 10/10 pain in axilla and abdomen. Dilaudid and Zofran administered, see EMAR.
--- NOTE | 2019-12-16 16:20 | NUR ---
Tech Per Tech, findings will be reported to Dr. Bruno. Addendum: 12/16/19 at 1934 by WILLIAM RENTERIA RN RN Less than 1 year of battery life.
[2019-12-16] MEDS: METOCLOPRAMIDE HCL 10 MG TAB PO SCH ×2 (17:15→21:17)
[2019-12-16] MEDS: SUCRALFATE 1 GM/10 ML ORAL SUSP PO SCH ×2 (17:16→21:17)
--- NOTE | 2019-12-16 18:33 | NUR ---
at Station Dr. Rupesh Lucas at station. New orders received for gallbladder ultrasound. Addendum: 12/16/19 at 1835 by WILLIAM RENTERIA RN RN Wrong Time: [id number]
--- NOTE | 2019-12-16 19:35 | NUR ---
Closing Note Report given to CHIN RN, Nelli.
--- NOTE | 2019-12-16 20:09 | NUR ---
Medicated with Hydromorphone .5mg.and Zofran 4mg.both i.v.p as needed for abdominal pain 7/10 and nausea.
[2019-12-17] MEDS: ONDANSETRON HCL 4 MG/2 ML VIAL IV PRN ×4 (02:55→18:44)
[2019-12-17] MEDS: ACCU-CHEK COMFORT CURVE STRIP VI SCH ×5 (03:46→20:08)
[2019-12-17] MEDS: HYDROmorphone HCL 2 MG/ML VL IV PRN ×6 (03:46→21:53)
[2019-12-17] MEDS: InsuLIN REG 1unit/0.01ml Soln (100units/ml) SC SCH ×5 (03:51→20:00)
[2019-12-17 05:00] VITALS: BP 164/103
[2019-12-17] MEDS: METOCLOPRAMIDE HCL 10 MG TAB PO SCH ×4 (06:17→21:20)
[2019-12-17] MEDS: SUCRALFATE 1 GM/10 ML ORAL SUSP PO SCH ×4 (06:17→21:20)
[2019-12-17 06:53] LABS: Basophils # (auto) 0 10 ^3/uL (0-0.2); Basophils % (auto) 0.2 % (0.0-2.0); Eosinophils # (auto) 0 10 ^3/uL (0-0.8); Eosinophils % (auto) 0.1 % (0.0-7.0); Hematocrit 40.1 % (41.0-53.0); Hemoglobin 13.9 g/dL (13.5-17.5); Lymphocytes # (auto) 1.5 10 ^3/uL (0.4-5.4); Lymphocytes % (auto) 11.2 % (10.0-50.0); Mean Corpuscular Hemoglobin 30.9 pg (28.0-32.0); Mean Corpuscular Hgb Conc. 34.6 g/dL (32.0-36.0); Mean Corpuscular Volume 89.2 fL (80.0-100.0); Monocytes # (auto) 1.4 10 ^3/uL (0-1.3); Monocytes % (auto) 10.3 % (0.0-12.0); Neutrophils # (auto) 10.5 10 ^3/uL (1.6-8.6); Neutrophils % (auto) 78.2 % (37.0-80.0); Nucleated Red Blood Cells % 0.1 %; Platelet Count (auto) 278 10^3/uL (140-450); Red Blood Cells 4.49 10^6/uL (4.5-5.90); White Blood Cell 13.4 10^3/uL (4.4-10.8)
--- NOTE | 2019-12-17 07:05 | NUR ---
Opening Note Assumed patient care from CHIN MARKS, Nelli.
--- NOTE | 2019-12-17 07:12 | NUR ---
Report given to Sonia Gonzalez, patient is resting no respiratory distress.
[2019-12-17 07:13] LABS: Potassium 3.4 mmol/L (3.5-5.1)
[2019-12-17 07:24] LABS: BUN/Creatinine Ratio 15.2
--- NOTE | 2019-12-17 08:20 | NUR ---
New IV New IV started on right forearm, 22 gauge. Patient tolerated well, no signs of distress at this time, respirations are even and unlabored, safety precautions in place. Will continue to monitor.
--- NOTE | 2019-12-17 08:33 | NUR ---
Pain Patient complaining of 10/10 pain on abdomen and axilla. Patient also states he is having nausea. Patient requesting Dilaudid and Zofran, but states that he "doesn't feel like they're helping" and is requesting an increase in dosing of pain medication and different nausea medication. Lights turned off to provide low stimulus environment. Will notify MD of patient request.
[2019-12-17 09:00] VITALS: BP 158/102
[2019-12-17] MEDS: PANTOPRAZOLE 40 MG/10 ML VIAL INJ IV SCH (09:17)
[2019-12-17] MEDS: cefTRIAXone 1GM/50ML D5W 50 ML IV SCH (09:18)
[2019-12-17] MEDS: hydrALAZINE HCL 20 MG/ML VL IV PRN ×3 (09:18→21:23)
--- NOTE | 2019-12-17 11:00 | NUR ---
at bedside Dr. Cleary at beside discussing plan of care with patient.
[2019-12-17] MEDS ORDERED: POTASSIUM CHLORIDE 20 MEQ, LIDOCAINE 1% (LOCAL ANESTH.) 2 ML in SODIUM CHL 0.9% 100 ML IV ONE (11:30)
--- NOTE | 2019-12-17 11:59 | NUR ---
Pain Patient complaining of 10/10 pain on abdomen and axilla. Pain medication administered. MD is aware of patient continued complaint of pain.
[2019-12-17 13:00] VITALS: BP 164/109
[2019-12-17 14:08] LABS: INR 1.05 (0.9-1.15)
[2019-12-17] MEDS: SOD CHL 0.45% 1,000 ML IV SCH (15:15)
--- NOTE | 2019-12-17 15:40 | NUR ---
at bedside Dr. Bruno at bedside discussing plan of care with patient. New orders for IV fluids received, will carry out orders.
[2019-12-17 17:00] VITALS: BP_SYST 127; BP_SYST 149; BP_DIAS 62; BP_DIAS 98
--- NOTE | 2019-12-17 18:30 | NUR ---
Patient Rounds Patient currently sitting up in bed, no signs of distress at this time. Will continue to monitor, safety precautions in place.
--- NOTE | 2019-12-17 19:30 | NUR ---
Opening Shift Note Report from day shift RN received. Assumed care. Patient, awake and A&O x4. No S/S of distress/SOB noted. Patient complained of pain. Will medicate per MD orders. Instructed on POC and to call for assist PRN, will continue to monitor for changes Q1hr and PRN.
--- NOTE | 2019-12-17 19:30 | NUR ---
Report Report given to NOC RN, Kerri.
--- NOTE | 2019-12-17 21:23 | NUR ---
HIGH BLOOD PRESSURE ELEVATED BP REPORTED BY BROKER IN CHARGE: 165/101 WILL GIVE ANTIHYPERTENSIVE MEDICATION ORDERED PER MD ORDERS.
--- NOTE | 2019-12-17 21:53 | NUR ---
PAIN PATIENT COMPLAINED OF ABDOMINAL PAIN 9/10 ON A NUMERICAL SCALE. WILL MEDICATE PER MD ORDERS.
[2019-12-17 22:00] VITALS: BP 171/93
--- NOTE | 2019-12-17 22:00 | NUR ---
RIGHT AXILLARY ABSCESS WAS NOTED TO BE LEAKING MODERATE AMOUNT OF PURULENT FLUID. ABSCESS WAS COVERED WITH NON-ADHERING PADS AND KERLIX.
--- NOTE | 2019-12-17 22:08 | NUR ---
COVID SWAB PER PRE-OR PROTOCOL COLLECTED AND SENT TO LAB.
--- NOTE | 2019-12-17 22:23 | NUR ---
BP REASSESSMENT: CURRENT BP AT THIS TIME: 150/94, WILL CONTINUE TO MONITOR
--- NOTE | 2019-12-17 22:23 | NUR ---
PAIN REASSESSMENT PATIENT STILL COMPLAINS OF ABDOMINAL PAIN, REQUESTING HIGHER DOSAGE OF MEDICATION. PATIENT REPOSITIONED FRO COMFORT. WILL CALL HOSPITALIST TO INFORM OF PATIENT'S REQUEST.
--- NOTE | 2019-12-17 23:55 | NUR ---
TACHYCARDIA/ VOMITING PATIENT NOTED TO HAVING SINUS TACHYCARDIA RANGING FROM 120s-140s, NO COMPLAINTS OF DIZZINESS, SOB, OR CHEST PAIN. EKG DONE. HOSPITALIST PAGED, NEW ORDER TO UPGRADE PATIENT TO TELEMETRY AND TO MONITOR HEART RATE. PATIENT FREQUENTLY VOMITING WATERY EMESIS AROUND EVERY 45 MINUTES APPROXIMATELY AROUND 100 MLS OR LESS EACH TIME. ZOFRAN NOT ALLEVIATING NAUSEA. NEW ORDERS FOR PROMETHAZINE. READ BACK AND VERIFIED. WILL CARRY OUT ORDER.
[2019-12-18] MEDS: PROMETHAZINE HCL 25 MG/ML 1ML IV PRN (00:01)
[2019-12-18] MEDS: ACCU-CHEK COMFORT CURVE STRIP VI SCH ×7 (00:12→23:12)
[2019-12-18] MEDS: HYDROmorphone HCL 2 MG/ML VL IV PRN ×6 (01:02→23:12)
[2019-12-18] MEDS: InsuLIN REG 1unit/0.01ml Soln (100units/ml) SC SCH ×7 (03:49→23:10)
[2019-12-18] MEDS: SOD CHL 0.45% 1,000 ML IV SCH ×2 (04:05→19:34)
--- NOTE | 2019-12-18 04:05 | NUR ---
PAIN PATIENT COMPLAINING ABDOMINAL PAIN 04/18. WILL MEDICATE PER MD ORDERS.
--- NOTE | 2019-12-18 04:35 | NUR ---
PAIN REASSESSMENT PATIENT NOTED RESTING IN BED, STATES PAIN IS TOLERABLE AT THIS TIME.
[2019-12-18 05:00] VITALS: BP 148/93
[2019-12-18] MEDS: METOCLOPRAMIDE HCL 10 MG TAB PO SCH ×4 (05:45→21:01)
[2019-12-18] MEDS: SUCRALFATE 1 GM/10 ML ORAL SUSP PO SCH ×4 (05:45→21:02)
[2019-12-18 06:20] LABS: Basophils # (auto) 0.1 10 ^3/uL (0-0.2); Basophils % (auto) 0.6 % (0.0-2.0); Eosinophils # (auto) 0 10 ^3/uL (0-0.8); Eosinophils % (auto) 0.1 % (0.0-7.0); Hematocrit 41.1 % (41.0-53.0); Hemoglobin 13.9 g/dL (13.5-17.5); Lymphocytes # (auto) 1.1 10 ^3/uL (0.4-5.4); Lymphocytes % (auto) 10.5 % (10.0-50.0); Mean Corpuscular Hemoglobin 30.5 pg (28.0-32.0); Mean Corpuscular Hgb Conc. 33.8 g/dL (32.0-36.0); Mean Corpuscular Volume 90.4 fL (80.0-100.0); Neutrophils % (auto) 78.8 % (37.0-80.0); Nucleated Red Blood Cells % 0.1 %; Platelet Count (auto) 290 10^3/uL (140-450); Red Blood Cells 4.55 10^6/uL (4.5-5.90); White Blood Cell 10.2 10^3/uL (4.4-10.8)
[2019-12-18 06:56] LABS: Potassium 3.7 mmol/L (3.5-5.1)
[2019-12-18 07:00] LABS: Albumin 3.1 g/dL (3.4-5.0); BUN/Creatinine Ratio 12.2; Bilirubin, Total 1.1 mg/dL (0.2-1.0); Calcium 9.3 mg/dL (8.5-10.1); Total Protein 8.3 g/dL (6.4-8.2)
[2019-12-18 09:00] VITALS: BP 143/81
[2019-12-18] MEDS: PANTOPRAZOLE 40 MG/10 ML VIAL INJ IV SCH (09:20)
[2019-12-18] MEDS: cefTRIAXone 1GM/50ML D5W 50 ML IV SCH (09:23)
[2019-12-18 10:16] LABS: Hepatitis B Surface Antibody Negative
--- NOTE | 2019-12-18 10:24 | NUR ---
Dr Lantigua saw patient and discussed POC. event technician at bedside. New orders for abscess culture. Pt to have I and D today. reports he has adjusted ABX.
--- NOTE | 2019-12-18 10:31 | NUR ---
CALLED PRE OP, THEY REPORT PATIENT IS NOT ON SCHEDULE FOR TODAY. CALLED DR KWAN'S OFFICE TO SEE IF PT IS HAVING I AND D TODAY. LEFT MESSAGE WITH RECONSTRUCTIVE DENTIST, AWAITING CALL BACK.
[2019-12-18 10:48] LABS: Hepatitis A Total Antibody Positive
--- NOTE | 2019-12-18 11:18 | NUR ---
DR Lyubov KWAN CALLED BACK, REPORTS HE WILL CALL [facility] TO [facility] WHEN THEY CAN GET PATIENT IN, CONSENTS ALREADY SIGNED AND CHECKLIST COMPLETE.
[2019-12-18 11:27] LABS: Hepatitis B Core Total AB Negative; Hepatitis B Surface Antigen Negative (Negative); Hepatitis C Antibody Negative (Negative)
[2019-12-18] MEDS: CLINDAMYCIN HCL 150 MG CAP PO SCH ×3 (11:30→23:12)
[2019-12-18 13:00] VITALS: BP 132/88
[2019-12-18] MEDS ORDERED: ceFAZolin 1GM/50ML 50 ML IV ONE (13:32)
--- NOTE | 2019-12-18 13:43 | NUR ---
RIGHT AXILLARY WOUND CULTURE SENT TO LAB, PT TRANSPORTED TO [facility] VIA BED AND STAFF, NO DISTRESS NOTED.
[2019-12-18] MEDS ORDERED: SUCCINYLCHOLINE CHLORIDE 20 MG/ML 10ML VIAL IV ONE (14:03)
[2019-12-18] MEDS ORDERED: LIDOCAINE 1% (LOCAL ANESTH.) PF 5ml SDV ONE (14:03)
[2019-12-18] MEDS ORDERED: MIDAZOLAM HCL 1MG/1ML-2 ML VIAL ONE (14:05)
[2019-12-18] MEDS ORDERED: PROPOFOL 10 MG/ML 20 ML IV ONE (14:11)
[2019-12-18] MEDS ORDERED: fentaNYL CITRATE 100 MCG/2 ML VL ONE (14:15)
[2019-12-18] MEDS ORDERED: METOCLOPRAMIDE HCL 5MG/ml INJ 2ml VIAL IV ONE (14:15)
[2019-12-18] MEDS ORDERED: ceFAZolin 1GM VL ONE (14:30)
[2019-12-18] MEDS ORDERED: HYDROmorphone HCL 2 MG/ML VL IV PRN ×2 (15:00)
[2019-12-18] MEDS ORDERED: ONDANSETRON HCL 4 MG/2 ML VIAL IV PRN (15:00)
[2019-12-18] MEDS ORDERED: NALOXONE HCL 0.4 MG/ML VIAL IV PRN (15:00)
[2019-12-18] MEDS ORDERED: ACCU-CHEK COMFORT CURVE STRIP VI ONE (15:00)
--- NOTE | 2019-12-18 15:55 | NUR ---
PT RETURNED TO FLOOR FROM OR. PT REPORTS NO PAIN AT THIS TIME BUT REPORTS HE WANTS TO SLEEP. VITALS:138/91, HR 102, 02 97 % ON RA, RR 14, T 98.5. DRESSING RIGHT AXILLARY CDI. WILL CONTINUE TO MONITOR.
[2019-12-18 17:00] VITALS: BP 134/78
--- NOTE | 2019-12-18 19:30 | NUR ---
Opening Shift Note Assumed care of patient, awake and alert. No S/S of distress/SOB or pain. Surgical incision dry and intact. Instructed on POC and to call for assist PRN, will continue to monitor for changes Q1hr and PRN.
[2019-12-18 20:00] VITALS: BP 151/98
[2019-12-18] MEDS: HYDROcodone-ACET 5/325MG TAB PO PRN (21:01)
--- NOTE | 2019-12-18 21:02 | NUR ---
Pain Patient c/o pain 6/10 abdominal area, administered pain medication PRN.
[2019-12-18 22:00] VITALS: BP 151/98
--- NOTE | 2019-12-18 22:01 | NUR ---
RE Pain Patient currently resting, no signs of pain.
--- NOTE | 2019-12-18 23:12 | NUR ---
Pain Patient c/o pain 8/10 in abdomen area, pain medication administered PRN.
--- NOTE | 2019-12-18 23:42 | NUR ---
RE Pain Patient is sleeping, no signs of pain or distress.
[2019-12-19] MEDS: InsuLIN REG 1unit/0.01ml Soln (100units/ml) SC SCH ×5 (04:44→20:39)
[2019-12-19] MEDS: ACCU-CHEK COMFORT CURVE STRIP VI SCH ×5 (04:44→20:39)
[2019-12-19] MEDS: HYDROmorphone HCL 2 MG/ML VL IV PRN ×4 (04:44→20:42)
[2019-12-19] MEDS: PROMETHAZINE HCL 25 MG/ML 1ML IV PRN ×3 (04:44→17:32)
--- NOTE | 2019-12-19 04:44 | NUR ---
Pain Patient c/o of pain 8/10 of abdominal pain, administered pain medication.
--- NOTE | 2019-12-19 04:45 | NUR ---
Nausea Episode Patient felt nauseous and vomited a few times, nausea medication administered.
[2019-12-19 05:00] VITALS: BP 167/105
--- NOTE | 2019-12-19 05:15 | NUR ---
RE Pain & Nausea Patient is sleeping no signs of pain or nausea.
[2019-12-19] MEDS: METOCLOPRAMIDE HCL 10 MG TAB PO SCH ×4 (06:15→22:00)
[2019-12-19] MEDS: CLINDAMYCIN HCL 150 MG CAP PO SCH ×3 (06:15→18:00)
[2019-12-19] MEDS: SUCRALFATE 1 GM/10 ML ORAL SUSP PO SCH ×4 (06:16→22:00)
[2019-12-19] MEDS: SOD CHL 0.45% 1,000 ML IV SCH ×2 (06:45→20:05)
[2019-12-19 06:48] LABS: Basophils # (auto) 0 10 ^3/uL (0-0.2); Basophils % (auto) 0.7 % (0.0-2.0); Eosinophils # (auto) 0 10 ^3/uL (0-0.8); Eosinophils % (auto) 0.3 % (0.0-7.0); Hematocrit 35.9 % (41.0-53.0); Hemoglobin 12.4 g/dL (13.5-17.5); Lymphocytes # (auto) 1.2 10 ^3/uL (0.4-5.4); Lymphocytes % (auto) 22.7 % (10.0-50.0); Mean Corpuscular Hemoglobin 30.7 pg (28.0-32.0); Mean Corpuscular Hgb Conc. 34.4 g/dL (32.0-36.0); Mean Corpuscular Volume 89.2 fL (80.0-100.0); Monocytes # (auto) 0.6 10 ^3/uL (0-1.3); Monocytes % (auto) 11.3 % (0.0-12.0); Neutrophils # (auto) 3.5 10 ^3/uL (1.6-8.6); Nucleated Red Blood Cells % 0.1 %; Platelet Count (auto) 268 10^3/uL (140-450); Red Blood Cells 4.03 10^6/uL (4.5-5.90); Red Cell Distribution Width 12.7 % (11.8-14.3); White Blood Cell 5.4 10^3/uL (4.4-10.8)
[2019-12-19 07:05] LABS: Potassium 3.4 mmol/L (3.5-5.1)
[2019-12-19 07:18] LABS: BUN/Creatinine Ratio 15.1; Calcium 8.8 mg/dL (8.5-10.1)
--- NOTE | 2019-12-19 07:25 | NUR ---
HBP Patient BP of 155/95, HR-100. Hydralazine 5mg PRN administered.
[2019-12-19] MEDS: hydrALAZINE HCL 20 MG/ML VL IV PRN (07:27)
--- NOTE | 2019-12-19 07:30 | NUR ---
Closing Note Endorsed cared to dayshift nurse.
[2019-12-19] MEDS ORDERED: ADENOSINE 47 MG in GIVE UN-DILUTED 0 ML IV STA (08:11)
--- NOTE | 2019-12-19 08:22 | NUR ---
taken to radiology for stress test via wc.
[2019-12-19] MEDS ORDERED: LIDOCAINE VISCOUS 2% 15ML UD ONE (08:50)
[2019-12-19] MEDS ORDERED: SODIUM CHLORIDE LOCK 10 ML ONE (08:50)
[2019-12-19 09:00] VITALS: BP 151/88
[2019-12-19] MEDS: PANTOPRAZOLE 40 MG/10 ML VIAL INJ IV SCH ×2 (10:13→22:00)
[2019-12-19] MEDS ORDERED: POTASSIUM CHLORIDE 20 MEQ, LIDOCAINE 1% (LOCAL ANESTH.) 2 ML in SODIUM CHL 0.9% 100 ML IV ONE (10:15)
[2019-12-19] MEDS: cefTRIAXone 1GM/50ML D5W 50 ML IV SCH (10:25)
--- NOTE | 2019-12-19 10:30 | NUR ---
returned from radiology stress test
--- NOTE | 2019-12-19 12:00 | NUR ---
po meds held for procedure
--- NOTE | 2019-12-19 12:40 | NUR ---
Nutrition Assessment Notes please see attached link for complete assessment Est Energy needs BW 56 [id number] kcals (25-30 kcal/kgBW), Est Protein needs: 56-67 gms/day (1.0-1.2 gm/kgBW). Will continue to monitor and reassess prn. Addendum: 12/19/19 at [address] Amended: Links added.
[2019-12-19 13:32] VITALS: BP 141/78
[2019-12-19] MEDS: MIDAZOLAM HCL 5 MG/ML-1ML VIAL ONE ×3 (15:28→15:32)
[2019-12-19] MEDS: fentaNYL CITRATE 100 MCG/2 ML VL ONE ×2 (15:28→15:30)
--- NOTE | 2019-12-19 16:00 | NUR ---
LARGE BM. LINENS CHANGED AND ALEXANDRA CARE PERORMED BY PATIENT. TOLERATED WELL
[2019-12-19 16:35] VITALS: BP 116/72
--- NOTE | 2019-12-19 19:01 | NUR ---
REFUSED PM MEDS " MY STOMACH HURTS RIGHT NOW" . PAIN MEDS GIVEN [id number]. PATIENT EDUCATED ON NON COMPLIANCE. WILL CONTINUE TO MONITOR.
--- NOTE | 2019-12-19 19:15 | NUR ---
ENDORSED CARE TO NIGHT SELINA PIERRE.
--- NOTE | 2019-12-19 19:40 | NUR ---
Opening Shift Note Assumed care of patient, awake and alert. No S/S of distress/SOB. Patient complained of pain 9/10, no pain medication due at the moment. Instructed on POC and to call for assist PRN, will continue to monitor for changes Q1hr and PRN.
[2019-12-19 20:00] VITALS: BP 164/106
--- NOTE | 2019-12-19 20:42 | NUR ---
Pain Patient complained of pain 9/10 in abdomen area, administered PRN pain medication.
--- NOTE | 2019-12-19 21:12 | NUR ---
RE Pain Patient is sleeping.
[2019-12-19 21:56] VITALS: BP 164/106
[2019-12-20] VITALS (7 sets, daily range): BP systolic 133–166; BP diastolic 70–97
[2019-12-20] MEDS: CLINDAMYCIN HCL 150 MG CAP PO SCH ×3 (00:21→12:03)
[2019-12-20] MEDS: InsuLIN REG 1unit/0.01ml Soln (100units/ml) SC SCH ×6 (00:21→20:12)
[2019-12-20] MEDS: HYDROmorphone HCL 2 MG/ML VL IV PRN ×6 (00:22→20:10)
[2019-12-20] MEDS: ACCU-CHEK COMFORT CURVE STRIP VI SCH ×6 (00:22→20:10)
--- NOTE | 2019-12-20 00:22 | NUR ---
Pain Patient c/o pain 9/10 abdominal area, pain medication PRN administered.
--- NOTE | 2019-12-20 00:52 | NUR ---
RE Pain Patient sleeping, no signs of pain or distress.
[2019-12-20] MEDS: hydrALAZINE HCL 20 MG/ML VL IV PRN (04:21)
--- NOTE | 2019-12-20 04:21 | NUR ---
Pain Patient c/o pain 8/10 in stomach area, administered pain medication.
--- NOTE | 2019-12-20 04:51 | NUR ---
RE Pain Patient sleeping
[2019-12-20] MEDS: METOCLOPRAMIDE HCL 10 MG TAB PO SCH ×4 (05:49→21:40)
[2019-12-20] MEDS: SUCRALFATE 1 GM/10 ML ORAL SUSP PO SCH ×4 (05:49→21:40)
[2019-12-20 07:09] LABS: Basophils # (auto) 0.1 10 ^3/uL (0-0.2); Basophils % (auto) 0.9 % (0.0-2.0); Eosinophils # (auto) 0 10 ^3/uL (0-0.8); Eosinophils % (auto) 0.5 % (0.0-7.0); Hematocrit 38.6 % (41.0-53.0); Hemoglobin 13.1 g/dL (13.5-17.5); Lymphocytes # (auto) 1.5 10 ^3/uL (0.4-5.4); Lymphocytes % (auto) 23.5 % (10.0-50.0); Mean Corpuscular Hemoglobin 30.6 pg (28.0-32.0); Mean Corpuscular Volume 90.2 fL (80.0-100.0); Monocytes # (auto) 0.8 10 ^3/uL (0-1.3); Monocytes % (auto) 12.5 % (0.0-12.0); Neutrophils # (auto) 3.9 10 ^3/uL (1.6-8.6); Neutrophils % (auto) 62.6 % (37.0-80.0); Nucleated Red Blood Cells % 0.1 %; Platelet Count (auto) 284 10^3/uL (140-450); Red Blood Cells 4.28 10^6/uL (4.5-5.90); White Blood Cell 6.2 10^3/uL (4.4-10.8)
--- NOTE | 2019-12-20 07:19 | NUR ---
Closing Note Endorsed care to dayshift nurse.
[2019-12-20 07:27] LABS: BUN/Creatinine Ratio 11.9; Calcium 8.6 mg/dL (8.5-10.1)
--- NOTE | 2019-12-20 07:30 | NUR ---
Opening Shift Note Assumed care of patient, awake and alert. No S/S of distress/SOB or pain. Instructed on POC and to call for assist PRN, will continue to monitor for changes Q1hr and PRN.
[2019-12-20 07:31] LABS: Potassium 2.9 mmol/L (3.5-5.1)
--- NOTE | 2019-12-20 07:34 | NUR ---
PAGED HOSPITALIST RE: CRITICAL POTASSIUM LEVEL OF 2.9. WAITING FOR CALL BACK.
[2019-12-20] MEDS ORDERED: POTASSIUM CHL 20 Meq TABLET PO ONE (08:15)
[2019-12-20] MEDS: cefTRIAXone 1GM/50ML D5W 50 ML IV SCH (08:29)
[2019-12-20] MEDS: PANTOPRAZOLE 40 MG/10 ML VIAL INJ IV SCH ×2 (08:29→21:40)
--- NOTE | 2019-12-20 11:30 | NUR ---
DR Raimundo KWAN CALLED. UPDATE ON PT'S STATUS GIVEN.
[2019-12-20] MEDS: SOD CHL 0.45% 1,000 ML IV SCH ×2 (12:04→22:45)
[2019-12-20] MEDS: PROMETHAZINE HCL 25 MG/ML 1ML IV PRN (12:18)
--- NOTE | 2019-12-20 15:00 | NUR ---
IV insertion IV access obtained, via clean sterile technique by inserting 20 gauge catheter at after 1 attempt(s). IV secured properly. No trauma to site. Patient tolerated well. NOTE: IV removal PREVIOUS IV ON LEFT AC DC'd with clean sterile technique, catheter fully intact. Pressure dressing applied to site. Patient tolerated well.
--- NOTE | 2019-12-20 17:00 | NUR ---
WOUND CARE ON RIGHT AXILLA. WOUND CARE PERFORMED AND DRESSING CHANGED ORDERED BY . PT TOLERATED WELL.
--- NOTE | 2019-12-20 19:30 | NUR ---
Opening Shift Note Assumed care of patient, awake and alert. No S/S of distress/SOB or pain. Patient eating dinner. Instructed on POC and to call for assist PRN, will continue to monitor for changes Q1hr and PRN.
--- NOTE | 2019-12-20 20:10 | NUR ---
Pain Patient c/o pain 8/10 in abdomen area. Patient medication PRN administered.
--- NOTE | 2019-12-20 20:40 | NUR ---
RE Pain Patient is sleeping, no signs of pain or distress.
[2019-12-21] MEDS: ACCU-CHEK COMFORT CURVE STRIP VI SCH ×3 (00:30→08:09)
--- NOTE | 2019-12-21 02:00 | NUR ---
Pain Patient c/o of pain 8/10 and feeling nauseous. Pain and nausea administered.
[2019-12-21] MEDS: PROMETHAZINE HCL 25 MG/ML 1ML IV PRN ×2 (02:02→08:09)
[2019-12-21] MEDS: HYDROmorphone HCL 2 MG/ML VL IV PRN ×3 (02:03→09:35)
--- NOTE | 2019-12-21 02:33 | NUR ---
RE Pain & Nausea Patient is sleeping no signs of distress or pain.
[2019-12-21] MEDS: InsuLIN REG 1unit/0.01ml Soln (100units/ml) SC SCH ×3 (04:00→08:10)
--- NOTE | 2019-12-21 04:19 | NUR ---
Refusal of Insulin Patient refused insulin "i dont want insulin right now" educated patient and still refused.
[2019-12-21 05:30] VITALS: BP 144/83
[2019-12-21] MEDS: METOCLOPRAMIDE HCL 10 MG TAB PO SCH (06:08)
[2019-12-21] MEDS: SUCRALFATE 1 GM/10 ML ORAL SUSP PO SCH (06:09)
--- NOTE | 2019-12-21 06:14 | NUR ---
Pain Patient c/o pain 03/18. Pain medication administered.
--- NOTE | 2019-12-21 06:44 | NUR ---
RE Pain Patient is sleeping no signs of pain or distress.
--- NOTE | 2019-12-21 07:14 | NUR ---
Closing Note Endorsed care to dayshift nurse.
[2019-12-21 08:00] VITALS: BP 148/75
--- NOTE | 2019-12-21 08:00 | NUR ---
OPENING SHIFT NOTE ASSUMED CARE OF PATIENT AWAKE AND ALERT. NO S/S OF DISTRESS NOTED. PATIENT HAS COMPLAINTS OF NAUSEA AND 10/10 ABDOMINAL PAIN. WILL MEDICATE PER MD ORDER AND MAR. PATIENT UPDATED ON POC FOR THE DAY INCLUDING PENDING DISCHARGE. ALL QUESTIONS ANSWERED. BED IS IN LOWEST, LOCKED POSITION WITH SIDE RAILS UP X2 AND CALL LIGHT WITHIN REACH. WILL CONTINUE TO MONITOR Q1H AND PRN.
[2019-12-21 08:20] LABS: BUN/Creatinine Ratio 7.4; Calcium 8.4 mg/dL (8.5-10.1); Potassium 3.4 mmol/L (3.5-5.1)
[2019-12-21] MEDS: cefTRIAXone 1GM/50ML D5W 50 ML IV SCH (09:35)
[2019-12-21] MEDS: PANTOPRAZOLE 40 MG/10 ML VIAL INJ IV SCH (09:35)
[2019-12-21] MEDS ORDERED: CEPHALEXIN 250 MG CAP PO SCH (10:00)
[2019-12-21] MEDS ORDERED: POTASSIUM CHL 20 Meq TABLET PO ONE (10:30)
--- NOTE | 2019-12-21 10:48 | NUR ---
Discharge instructions given as ordered. Encourage to follow up with PMD as instructed. All questions and concerns addressed. Patient verbalized understanding. IV removed with catheter intact, pressure dressing applied. Telemetry unit returned to ICU. Patient taken to vehicle via wheelchair with all personal belongings, accompanied by staff. No distress noted at time of departure.
== END 2019-12-21 10:41 | disposition home or self-care (01) | DRG 720 ==
LOC: ER 21:09 → CENTRAL 21:10 → TELE-CENTR 12-16 01:41 → CENTRAL 12-16 01:58 → TELE-CENTR 12-17 23:01
PROVIDERS: ADMIT Hospitalist; ATTEND Internal Medicine
PROC: 0X940ZX Drainage of Right Axilla, Open Approach, Diagnostic (ICD-10-PCS; 2019-12-18)
PROC: 0DB68ZX Excision of Stomach, Via Natural or Artificial Opening Endoscopic, Diagnostic (ICD-10-PCS; 2019-12-19)
PROC: 0DB88ZX Excision of Small Intestine, Via Natural or Artificial Opening Endoscopic, Diagnostic (ICD-10-PCS; 2019-12-19)
PROC: 0DB58ZX Excision of Esophagus, Via Natural or Artificial Opening Endoscopic, Diagnostic (ICD-10-PCS; principal; 2019-12-19 15:22)
DX: A41.9 Sepsis, unspecified organism (principal); E11.10 Type 2 diabetes mellitus with ketoacidosis without coma; I67.1 Cerebral aneurysm, nonruptured; K22.10 Ulcer of esophagus without bleeding; E11.21 Type 2 diabetes mellitus with diabetic nephropathy; E11.51 Type 2 diabetes mellitus with diabetic peripheral angiopathy without gangrene; E87.1 Hypo-osmolality and hyponatremia; L02.411 Cutaneous abscess of right axilla; K29.80 Duodenitis without bleeding; K29.70 Gastritis, unspecified, without bleeding; I10 Essential (primary) hypertension; K44.9 Diaphragmatic hernia without obstruction or gangrene; E78.5 Hyperlipidemia, unspecified; F10.10 Alcohol abuse, uncomplicated; M19.90 Unspecified osteoarthritis, unspecified site; E86.0 Dehydration; K31.9 Disease of stomach and duodenum, unspecified; I25.10 Atherosclerotic heart disease of native coronary artery without angina pectoris; Z87.11 Personal history of peptic ulcer disease; Z79.899 Other long term (current) drug therapy; Z79.4 Long term (current) use of insulin; Z83.3 Family history of diabetes mellitus; Z82.49 Family history of ischemic heart disease and other diseases of the circulatory system; Z87.891 Personal history of nicotine dependence; Z82.61 Family history of arthritis; Z95.5 Presence of coronary angioplasty implant and graft; I25.2 Old myocardial infarction; Z03.818 Encounter for observation for suspected exposure to other biological agents ruled out
CPT/HCPCS: 36415; 43239; 71045; 76705; 76881; 78452; 80048; 80053; 80061; 80307; 81001; 82010; 82150; 82962; 83036; 83690; 83735; 84484; 85025; 85610; 86704; 86706; 86708; 86803; 86850; 86900; 86901; 87040; 87070; 87075; 87077; 87086; 87088; 87186; 87205; 87340; 93005; 93017; 93306; 93925; 96365; 96367; 96375; C9113; G0378; J0153; J0330; J0690; J0696; J1815; J2001; J2250; J2405; J2543; J2704

== ENCOUNTER 2021-06-18 07:30 | Inpatient (IN) | payer OTHER ==
[~2021-06-18] VITALS: Ht 172.7 cm; Wt 60.8 kg
[~2021-06-18 07:30] MED LIST changes: -INSLANTI SC; +SUCR1TAB22 PO; -SUCR1TAB38 PO
[2021-06-18 10:14] LABS: Basophils # (auto) 0.1 10 ^3/uL (0-0.2); Basophils % (auto) 0.4 % (0.0-2.0); Eosinophils # (auto) 0 10 ^3/uL (0-0.8); Eosinophils % (auto) 0.1 % (0.0-7.0); Hematocrit 39.8 % (41.0-53.0); Hemoglobin 13.7 g/dL (13.5-17.5); Lymphocytes # (auto) 1.5 10 ^3/uL (0.4-5.4); Lymphocytes % (auto) 10.3 % (10.0-50.0); Mean Corpuscular Hemoglobin 31.6 pg (28.0-32.0); Mean Corpuscular Hgb Conc. 34.4 g/dL (32.0-36.0); Mean Corpuscular Volume 91.8 fL (80.0-100.0); Monocytes # (auto) 1.1 10 ^3/uL (0-1.3); Monocytes % (auto) 7.2 % (0.0-12.0); Red Blood Cells 4.33 10^6/uL (4.5-5.90); Red Cell Distribution Width 12.5 % (11.8-14.3); White Blood Cell 14.6 10^3/uL (4.4-10.8)
[2021-06-18 11:03] LABS: Calcium 9.5 mg/dL (8.5-10.1); Magnesium 1.9 mg/dL (1.6-2.6)
[2021-06-18 11:10] LABS: Albumin 4.1 g/dL (3.4-5.0); Bilirubin, Total 2.1 mg/dL (0.2-1.0)
[2021-06-18 11:30] LABS: Potassium 6.2 mmol/L (3.5-5.1)
[2021-06-18] MEDS ORDERED: HYDROmorphone HCL 2 MG/ML VL IV ONE (11:45)
[2021-06-18] MEDS ORDERED: METOCLOPRAMIDE HCL 5MG/ml INJ 2ml VIAL IV ONE (11:45)
[2021-06-18] MEDS ORDERED: CALCIUM CHL 100MG/ML 1,000 MG in D5W 5% 100 ML IV ONE (11:45)
[2021-06-18] MEDS ORDERED: SODIUM BICARBONATE 8.4 % INJ 50ML VIAL IV ONE (11:45)
[2021-06-18] MEDS ORDERED: metroNIDAZOLE 500MG/100ML 100 ML IV ONE ×2 (11:45→16:00)
[2021-06-18] MEDS ORDERED: InsuLIN REG 1unit/0.01ml Soln (100units/ml) IV ONE (11:45)
[2021-06-18] MEDS ORDERED: cefTRIAXone 1GM/50ML D5W 50 ML IV ONE ×2 (11:45→16:00)
[2021-06-18 11:47] LABS: Amphetamine Screen, Urine NEGATIVE (NEGATIVE); Barbiturate Scree,Urine NEGATIVE (NEGATIVE); Benzodiazephine Screen, Urine NEGATIVE (NEGATIVE); Cannabinoid Screen, Urine NEGATIVE (NEGATIVE); Cocaine Screen, Urine NEGATIVE (NEGATIVE); Phencyclidine Screen, Urine NEGATIVE (NEGATIVE)
[2021-06-18 11:55] LABS: Opiate Scree,Urine NEGATIVE (NEGATIVE)
[2021-06-18 12:06] LABS: Urine Bacteria NONE SEEN /hpf (None Seen); Urine Blood Negative /uL (Negative); Urine Hyaline Cast MANY /lpf (0 - 2); Urine Mucus FEW (None Seen); Urine Specific Gravity 1.023 (1.001-1.035); Urine WBC 10 /hpf (0 - 3)
[2021-06-18] MEDS ORDERED: METOCLOPRAMIDE HCL 5MG/ml INJ 2ml VIAL ONE (12:06)
[2021-06-18] MEDS ORDERED: SODIUM BICARBONATE 8.4% INJ 50ML SYRINGE ONE (12:31)
[2021-06-18] MEDS ORDERED: PROCHLORPERAZINE EDISYLATE 5 MG/ML 2ML VIAL IV ONE (13:30)
[2021-06-18] MEDS ORDERED: InsuLIN REG 1unit/0.01ml Soln (100units/ml) SC ONE (14:00)
[2021-06-18] MEDS ORDERED: NITROGLYCERIN 0.4 MG SL TAB SL PRN ×2 (14:30→16:00)
[2021-06-18] MEDS ORDERED: MORPHINE SULFATE INJECTION 2 MG/ML SYRG IV PRN ×2 (14:30→16:00)
[2021-06-18] MEDS ORDERED: LACTATED RINGER'S 1,000 ML IV ONE (14:30)
[2021-06-18] MEDS ORDERED: ONDANSETRON HCL 4 MG/2 ML VIAL IV PRN ×2 (15:00→16:00)
[2021-06-18 15:13] LABS: INR 1.02 (0.9-1.15); Partial Thromboplastin Time 21.2 sec (23.6-33.0)
[2021-06-18] MEDS ORDERED: FAMO20TA10 PO (15:53)
[2021-06-18] MEDS ORDERED: LISI2.5T47 PO (15:54)
[2021-06-18] MEDS ORDERED: GLYB5TAB8 PO (15:54)
[2021-06-18] MEDS ORDERED: CHOL1CAP21 PO (15:55)
[2021-06-18] MEDS ORDERED: METF-929 PO (15:55)
[2021-06-18] MEDS ORDERED: LORazepam 0.5 MG TAB PO PRN (16:00)
[2021-06-18] MEDS ORDERED: SODIUM ZIRCONIUM CYCL 10 GM PAK PO ONE (16:00)
[2021-06-18] MEDS ORDERED: SUCRALFATE 1 GM/10 ML ORAL SUSP PO ONE ×2 (16:00→16:15)
[2021-06-18] MEDS ORDERED: hydrALAZINE HCL 20 MG/ML VL IV PRN (16:00)
[2021-06-18] MEDS ORDERED: DOCUSATE SOD 100 MG CAP PO PRN (16:00)
[2021-06-18] MEDS ORDERED: ACETAMINOPHEN 325 MG TAB PO PRN (16:00)
[2021-06-18] MEDS ORDERED: PANTOPRAZOLE 40 MG/10 ML VIAL INJ IV ONE ×2 (16:00→16:15)
[2021-06-18] MEDS: SODIUM CHLORIDE 0.9% 1,000 ML IV SCH (16:37)
[2021-06-18] MEDS: chlordiazePOXIDE HCL 25 MG CAP PO SCH (16:49)
[2021-06-18] MEDS ORDERED: SUCRALFATE 1 GM/10 ML ORAL SUSP PO SCH (17:00)
[2021-06-18] MEDS: PANCREATIC ENZYMES 4200 UNIT CAP PO SCH (18:00)
[2021-06-18 20:00] VITALS: BP 125/77
[2021-06-18] MEDS: MORPHINE SULFATE INJECTION 2 MG/ML SYRG IV PRN (20:55)
[2021-06-18] MEDS ORDERED: LISI20TA28 PO (21:58)
[2021-06-18 22:00] VITALS: BP 125/77
[2021-06-18] MEDS ORDERED: PANTOPRAZOLE 40 MG/10 ML VIAL INJ IV SCH (22:00)
[2021-06-18] MEDS: SODIUM ZIRCONIUM CYCL 10 GM PAK PO SCH (22:00)
[2021-06-18] MEDS: metroNIDAZOLE 500MG/100ML 100 ML IV SCH (22:14)
[2021-06-18] MEDS: SUCRALFATE 1 GM/10 ML ORAL SUSP PO SCH (22:14)
[2021-06-19] MEDS: chlordiazePOXIDE HCL 25 MG CAP PO SCH ×4 (00:20→21:03)
[2021-06-19] MEDS: HYDROcodone-ACET 5/325MG TAB PO PRN ×2 (00:20→23:14)
[2021-06-19] MEDS ORDERED: DEXTROSE (50%) 50ML SYRG IV PRN (00:30)
[2021-06-19 05:00] VITALS: BP 110/70
[2021-06-19] MEDS: SODIUM CHLORIDE 0.9% 1,000 ML IV SCH ×2 (05:20→16:00)
[2021-06-19] MEDS: SODIUM ZIRCONIUM CYCL 10 GM PAK PO SCH ×3 (06:00→21:05)
[2021-06-19] MEDS: MORPHINE SULFATE INJECTION 2 MG/ML SYRG IV PRN ×4 (06:00→21:26)
[2021-06-19] MEDS: metroNIDAZOLE 500MG/100ML 100 ML IV SCH ×3 (06:00→21:03)
[2021-06-19] MEDS: ACCU-CHEK COMFORT CURVE STRIP VI SCH ×4 (06:00→23:19)
[2021-06-19] MEDS: InsuLIN REG 1unit/0.01ml Soln (100units/ml) SC SCH ×4 (06:00→23:20)
[2021-06-19] MEDS: SUCRALFATE 1 GM/10 ML ORAL SUSP PO SCH ×4 (07:00→21:03)
[2021-06-19 07:16] LABS: Basophils # (auto) 0.2 10 ^3/uL (0-0.2); Eosinophils # (auto) 0.1 10 ^3/uL (0-0.8); Eosinophils % (auto) 0.6 % (0.0-7.0); Hematocrit 34.3 % (41.0-53.0); Hemoglobin 11.9 g/dL (13.5-17.5); Lymphocytes # (auto) 2.1 10 ^3/uL (0.4-5.4); Lymphocytes % (auto) 26.9 % (10.0-50.0); Mean Corpuscular Hgb Conc. 34.6 g/dL (32.0-36.0); Mean Corpuscular Volume 92.4 fL (80.0-100.0); Monocytes # (auto) 0.6 10 ^3/uL (0-1.3); Monocytes % (auto) 7.9 % (0.0-12.0); Neutrophils # (auto) 4.8 10 ^3/uL (1.6-8.6); Neutrophils % (auto) 62.6 % (37.0-80.0); Red Blood Cells 3.72 10^6/uL (4.5-5.90); Red Cell Distribution Width 12.8 % (11.8-14.3); White Blood Cell 7.7 10^3/uL (4.4-10.8)
[2021-06-19] MEDS ORDERED: FAMOTIDINE (10MG/ML) 2ML VL IV ONE (07:21)
[2021-06-19] MEDS ORDERED: ROCURONIUM 10MG/ML 10ML VIAL IV ONE (07:21)
[2021-06-19] MEDS ORDERED: SUCCINYLCHOLINE CHLORIDE 20 MG/ML 10ML VIAL IV ONE (07:21)
[2021-06-19] MEDS ORDERED: MIDAZOLAM HCL 2MG/2ML 2ml VIAL (1mg/ml) ONE (07:23)
[2021-06-19] MEDS ORDERED: HYDROmorphone HCL 2 MG/ML VL ONE ×2 (07:23→09:06)
[2021-06-19] MEDS ORDERED: fentaNYL CITRATE 100 MCG/2 ML VL ONE (07:23)
[2021-06-19] MEDS ORDERED: ePHEDrine SULFATE 50 MG/ML AMP ONE (07:24)
[2021-06-19] MEDS ORDERED: ONDANSETRON HCL 4 MG/2 ML VIAL ONE (07:24)
[2021-06-19] MEDS ORDERED: LIDOCAINE 2% (LOCAL ANESTH.) PF 5ml SDV ONE (07:24)
[2021-06-19] MEDS ORDERED: PROPOFOL 10 MG/ML 20 ML IV ONE (07:24)
[2021-06-19] MEDS ORDERED: GLYCOPYRROLATE 0.2 MG/ML 1ML VIAL ONE (07:24)
[2021-06-19] MEDS ORDERED: ceFAZolin 1GM/50ML 100 ML IV ONE (07:29)
[2021-06-19 07:32] LABS: Albumin 3.2 g/dL (3.4-5.0); BUN/Creatinine Ratio 19.6; Calcium 8.8 mg/dL (8.5-10.1); Magnesium 1.6 mg/dL (1.6-2.6); Uric Acid 8.9 mg/dL (3.5-7.2)
[2021-06-19 07:36] LABS: INR 1.06 (0.9-1.15); Partial Thromboplastin Time 22.5 sec (23.6-33.0)
[2021-06-19 07:38] LABS: Bilirubin, Total 1.7 mg/dL (0.2-1.0); Phosphorus 3.7 mg/dL (2.5-4.90); Potassium 4.6 mmol/L (3.5-5.1); Total Protein 6.3 g/dL (6.4-8.2)
[2021-06-19] MEDS: PANCREATIC ENZYMES 4200 UNIT CAP PO SCH ×2 (08:00→10:46)
[2021-06-19] MEDS ORDERED: SUGAMMADEX 200mg/2ml Vial (100MG/ML) IV ONE (08:19)
[2021-06-19] MEDS ORDERED: LIDOCAINE W/ EPINEPHRINE 1% 20ML VIAL ONE (08:26)
[2021-06-19] MEDS ORDERED: HYDROmorphone HCL 2 MG/ML VL IV PRN (09:00)
[2021-06-19] MEDS ORDERED: ONDANSETRON HCL 4 MG/2 ML VIAL IV PRN (09:00)
[2021-06-19] MEDS ORDERED: ACCU-CHEK COMFORT CURVE STRIP VI ONE (09:00)
[2021-06-19 10:08] VITALS: BP 119/60
[2021-06-19] MEDS: PANTOPRAZOLE 40 MG/10 ML VIAL INJ IV SCH ×2 (10:44→21:03)
[2021-06-19] MEDS: cefTRIAXone 1GM/50ML D5W 50 ML IV SCH (10:44)
[2021-06-19] MEDS: ENOXAPARIN SOD 40 MG/0.4 ML SYRINGE SC SCH (10:45)
[2021-06-19 12:40] VITALS: BP 108/63
[2021-06-19] MEDS ORDERED: PHENYLEPHRINE HCL 10 MG/ML VL IV ONE (14:29)
[2021-06-19 16:56] VITALS: BP 129/79
[2021-06-19 22:00] VITALS: BP 149/91
[2021-06-20] MEDS: MORPHINE SULFATE INJECTION 2 MG/ML SYRG IV PRN ×2 (02:09→12:03)
[2021-06-20] MEDS: HYDROcodone-ACET 5/325MG TAB PO PRN ×2 (03:04→08:23)
[2021-06-20 05:00] VITALS: BP_SYST 100; BP_SYST 111; BP_DIAS 55; BP_DIAS 66
[2021-06-20] MEDS: SODIUM ZIRCONIUM CYCL 10 GM PAK PO SCH (05:38)
[2021-06-20] MEDS: metroNIDAZOLE 500MG/100ML 100 ML IV SCH (05:38)
[2021-06-20] MEDS: InsuLIN REG 1unit/0.01ml Soln (100units/ml) SC SCH ×2 (05:39→12:04)
[2021-06-20] MEDS: ACCU-CHEK COMFORT CURVE STRIP VI SCH ×2 (05:39→12:02)
[2021-06-20 06:20] LABS: Basophils # (auto) 0 10 ^3/uL (0-0.2); Basophils % (auto) 0.4 % (0.0-2.0); Eosinophils # (auto) 0.1 10 ^3/uL (0-0.8); Eosinophils % (auto) 1.5 % (0.0-7.0); Hematocrit 29.5 % (41.0-53.0); Hemoglobin 10.5 g/dL (13.5-17.5); Lymphocytes % (auto) 36.1 % (10.0-50.0); Mean Corpuscular Hemoglobin 32.8 pg (28.0-32.0); Mean Corpuscular Hgb Conc. 35.6 g/dL (32.0-36.0); Mean Corpuscular Volume 92.3 fL (80.0-100.0); Monocytes # (auto) 0.7 10 ^3/uL (0-1.3); Neutrophils # (auto) 2.7 10 ^3/uL (1.6-8.6); Red Cell Distribution Width 12.4 % (11.8-14.3); White Blood Cell 5.4 10^3/uL (4.4-10.8)
[2021-06-20] MEDS: SUCRALFATE 1 GM/10 ML ORAL SUSP PO SCH ×2 (06:21→11:36)
[2021-06-20 06:29] LABS: Potassium 3.9 mmol/L (3.5-5.1)
[2021-06-20 06:39] LABS: Albumin 2.7 g/dL (3.4-5.0); BUN/Creatinine Ratio 9.7; Bilirubin, Total 1.3 mg/dL (0.2-1.0); Calcium 7.9 mg/dL (8.5-10.1); Magnesium 1.8 mg/dL (1.6-2.6); Total Protein 5.3 g/dL (6.4-8.2)
[2021-06-20] MEDS: PANTOPRAZOLE 40 MG/10 ML VIAL INJ IV SCH (08:22)
[2021-06-20] MEDS: ENOXAPARIN SOD 40 MG/0.4 ML SYRINGE SC SCH (08:22)
[2021-06-20] MEDS: cefTRIAXone 1GM/50ML D5W 50 ML IV SCH (08:22)
[2021-06-20 09:18] VITALS: BP 141/87
[2021-06-20] MEDS ORDERED: chlordiazePOXIDE HCL 25 MG CAP PO SCH (10:00)
[2021-06-20] MEDS ORDERED: SODIUM CHLORIDE 0.9% 1,000 ML IV SCH (10:15)
[2021-06-20] MEDS ORDERED: MAGNESIUM SULFATE 1GM/100ML 100 ML IV ONE (10:15)
[2021-06-20 12:37] VITALS: BP 104/52
[2021-06-21] MEDS ORDERED: chlordiazePOXIDE HCL 25 MG CAP PO SCH (07:00)
== END 2021-06-20 14:30 | disposition left against medical advice (07) | DRG 234 ==
LOC: ER 07:30 → EDBD 07:30 → OVERFLOW 14:22 → WEST WING 18:13
PROVIDERS: ADMIT Hospitalist; ATTEND Internal Medicine
PROC: 0DTJ4ZZ Resection of Appendix, Percutaneous Endoscopic Approach (ICD-10-PCS; principal; 2021-06-19 07:39)
DX: K35.80 Unspecified acute appendicitis (principal); N17.0 Acute kidney failure with tubular necrosis; R65.10 Systemic inflammatory response syndrome (SIRS) of non-infectious origin without acute organ dysfunction; K92.0 Hematemesis; I82.891 Chronic embolism and thrombosis of other specified veins; E11.21 Type 2 diabetes mellitus with diabetic nephropathy; E87.5 Hyperkalemia; K86.1 Other chronic pancreatitis; K29.70 Gastritis, unspecified, without bleeding; K21.9 Gastro-esophageal reflux disease without esophagitis; N18.31 Chronic kidney disease, stage 3a; E11.22 Type 2 diabetes mellitus with diabetic chronic kidney disease; E11.65 Type 2 diabetes mellitus with hyperglycemia; E66.3 Overweight; E78.00 Pure hypercholesterolemia, unspecified; F10.139 Alcohol abuse with withdrawal, unspecified; Y90.9 Presence of alcohol in blood, level not specified; K44.9 Diaphragmatic hernia without obstruction or gangrene; Z20.822 Contact with and (suspected) exposure to COVID-19; E78.5 Hyperlipidemia, unspecified; M19.90 Unspecified osteoarthritis, unspecified site; Z53.29 Procedure and treatment not carried out because of patient's decision for other reasons; Z79.84 Long term (current) use of oral hypoglycemic drugs; Z79.899 Other long term (current) drug therapy; Z82.49 Family history of ischemic heart disease and other diseases of the circulatory system; Z83.3 Family history of diabetes mellitus; Z87.11 Personal history of peptic ulcer disease; Z87.891 Personal history of nicotine dependence
CPT/HCPCS: 36415; 74176; 76705; 80053; 80307; 81001; 82150; 82306; 82962; 83036; 83690; 83735; 83880; 84100; 84132; 84443; 84484; 84550; 85025; 85379; 85610; 85730; 86850; 86900; 86901; 87040; 87086; 87426; 93005; 96365; 96375; C9113; G0378; J0330; J0690; J0696; J1815; J2001; J2250; J2405; J2704; J3490; J7060

== ENCOUNTER 2023-11-02 14:10 | Emergency (ER) | payer MEDICAID, OTHER ==
[~2023-11-02] VITALS: Ht 172.7 cm; Wt 54.0 kg
[~2023-11-02 14:10] MED LIST changes: -ATO40T PO; +ATOR-507 PO; +CHOL1CAP21 PO; +FAMO20TA10 PO; +GLYB5TAB8 PO; +LISI2.5T47 PO; +LISI20TA56 PO; +METF-929 PO; -ONDA-144 PO; -PANT40TA2 PO; -SUCR1TAB22 PO
[2023-11-02 14:33] VITALS: BP 130/82; PULSE 112; RESP 18; O2SAT 97
== END 2023-11-02 18:38 | disposition left against medical advice (07) ==
LOC: EDSEX 14:10 → EDBD 14:10 → ER 14:10
DX: R11.2 Nausea with vomiting, unspecified (principal); Z53.21 Procedure and treatment not carried out due to patient leaving prior to being seen by health care provider

== ENCOUNTER 2024-09-24 01:10 | Inpatient (IN) | payer MEDICAID ==
[~2024-09-24] VITALS: Ht 175.3 cm; Wt 57.2 kg
[2024-09-24 02:00] VITALS: PULSE 126; RESP 12; O2SAT 96
[2024-09-24] MEDS: ONDANSETRON ODT 4 MG TAB PO ONE (02:07)
[2024-09-24] MEDS: ONDANSETRON HCL 4 MG/2 ML VIAL IV ONE ×2 (02:12→03:37)
[2024-09-24] MEDS: SODIUM CHLORIDE 0.9% 2,000 ML IV ONE (02:12)
[2024-09-24] MEDS: LABETALOL HCL 20 MG/4 ML VL IV ONE (02:13)
--- NOTE | 2024-09-24 02:13 | ED.PDOC ---
GI ASSESSMENT HPI Comments 38-year-old male who came to emergency room due to GI bleed. 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 Few hours ago started having episodes of hematemesis. Denies any melena. No prior history of GI bleed. No history of endoscopic studies. Patient currently on Eliquis. Blood pressure upon arrival was 171/116 mmHg Chief Complaint: GI Bleed Time Seen by MD: 02:12 Primary Care Provider: None Reviewed Notes: Nurses Notes Allergies: Coded Allergies: NO KNOWN ALLERGIES (Unverified , 04/02/19) Home Meds Reported Medications Lisinopril (Lisinopril) 20 Mg Tab, 25 MG PO DAILY for 30 Days, MG 06/18/21 Metformin HCl (Metformin Hydrochloride) 1,000 Mg Tab, 1000 MG PO UNKNOWN FREQUENCY 06/18/21 Cholecalciferol (Vitamin D3) 50,000 Unit Cap, 1 CAP PO QWEEKLY 06/18/21 Lisinopril (Lisinopril) 2.5 Mg Tab, 1 TAB PO DAILY 06/18/21 Glyburide (Glyburide) 5 Mg Tab, 2 TAB PO BID 06/18/21 Famotidine (PEPCID TABLET) 20 Mg Tb, 1 TAB PO BID 06/18/21 Atorvastatin Calcium (Lipitor) 40 Mg Tab, 1 TAB PO QPM 04/04/19 Information Source: Patient Mode of Arrival: EMS Timing: Hours Duration: Since onset Prehospital treatment: None Vomitus: Bright Red Bood, Streaking Blood Stool: Normal Recent: Other (Blood thinners) Recent Hx of: None Associated sign and symptoms: Hematemesis Past Medical History PAST MEDICAL HISTORY: Arthritis, CVA, DM, GERD, High Lipids, PUD Past Medical History (Other): Patient nonverbal Surgical History: Denies all surgeries Family History Family History: Family hx of DM, Family hx of HTN Social History Smoker: Quit Greater Than 1 Year, Cigarettes Alcohol: Occasionally Drugs: Denies Drug Use Lives In: Home Unable to Obtain due to: Other (Patient nonverbal) Physical Exam General Appearance: Normal, Severe Distress HEENT: Normal ENT Inspection, Pharynx Normal, TMs Normal Neck: Full Range of Motion, Non-Tender, Normal, Normal Inspection Respiratory: Chest Non-Tender, Lungs Clear, No Accessory Muscle Use, No Respiratory Distress, Normal Breath Sounds Cardiovascular: No Edema, No JVD, No Murmur, No Gallop, Normal Peripheral Pulses, Regular Rate/Rhythm Breast Exam: Deferred Gastrointestinal: No Organomegaly, Non Tender, No Pulsatile Mass, Normal Bowel Sounds, Soft Genitalia: Deferred Pelvic: Deferred Rectal: Deferred Extremities: No calf tenderness, Normal capillary refill, Normal inspection, Normal range of motion, Non-tender, No pedal edema Musculoskeletal : Apperance: Normal Neurologic: Alert, dye tub tender II-XII nml as Tested, Normal Affect, Normal Mood, No Sensory Deficits, Other (Right-sided hemiparesis) Cerebellar Function: Normal Reflexes: Normal Skin: Dry, Normal Color, Warm Lymphatic: No Adenopathy Was a procedure done? Was a procedure done?: No GI differential Dx Differential Diagnosis: Diverticular disease, Gastritis/PUD, Gastroenteritis, Inflammatory BD, Ischemic Bowel, UTI, Urolithiasis, Anemia X-Ray, Labs, Meds, VS Vital Signs Date Time Temp Pulse Resp B/P (MAP) Pulse Ox O2 Delivery O2 Flow Rate FiO2 09/24/24 05:41 106 12 140/86 09/24/24 03:38 99 09/24/24 03:00 99 137/77 09/24/24 02:45 99 17 131/77 (95) 99 09/24/24 02:13 127 174/89 09/24/24 02:00 97.2 126 12 177/91 (119) 96 97.2 09/24/24 02:00 126 12 96 Room Air* 0 21 09/24/24 01:39 98.5 127 15 170/49 (89) 96 98.5 09/24/24 01:12 98.2 70 18 171/116 (134) 99 Lab Test 09/24/24 04:58 09/24/24 03:32 09/24/24 03:05 Range/Units Prothrombin Time Pending Prothrombin Time INR Pending Activated Partial Thromboplast Time Pending White Blood Count 14.0 H 4.4-10.8 10^3/uL Red Blood Count 5.29 4.5-5.90 10^6/uL Hemoglobin 15.6 13.5-17.5 g/dL Hematocrit 47.7 41.0-53.0 % Mean Corpuscular Volume 90.1 80.0-100.0 fL Mean Corpuscular Hemoglobin 29.4 28.0-32.0 pg Mean Corpuscular Hemoglobin Concent 32.7 32.0-36.0 g/dL Red Cell Distribution Width 14.4 H 11.8-14.3 % Platelet Count 229 140-450 10^3/uL Mean Platelet Volume 8.8 6.9-10.8 fL Neutrophils (%) (Auto) 88.9 H 37.0-80.0 % Lymphocytes (%) (Auto) 5.8 L 10.0-50.0 % Monocytes (%) (Auto) 5.1 0.0-12.0 % Eosinophils (%) (Auto) 0.0 0.0-7.0 % Basophils (%) (Auto) 0.2 0.0-2.0 % Neutrophils # (Auto) 12.4 H 1.6-8.6 10 ^3/uL Lymphocytes # (Auto) 0.8 0.4-5.4 10 ^3/uL Monocytes # (Auto) 0.7 0-1.3 10 ^3/uL Eosinophils # (Auto) 0 0-0.8 10 ^3/uL Basophils # (Auto) 0 0-0.2 10 ^3/uL Nucleated Red Blood Cells 0.2 % Sodium Level Pending Potassium Level Pending Chloride Level Pending Carbon Dioxide Level Pending Anion Gap Pending Blood Urea Nitrogen Pending Creatinine Pending Glomerular Filtration Rate Calc Pending BUN/Creatinine Ratio Pending Serum Glucose Pending Calcium Level Pending Total Bilirubin Pending Aspartate Amino Transferase (AST) Pending Alanine Aminotransferase (ALT) Pending Alkaline Phosphatase Pending Total Protein Pending Albumin Pending POC Glucose 214 H 70-106 mg/dl Current Medications Medications (Trade) Dose Ordered Sig/Sp Route Start Time Stop Time Status Last Admin Octreotide Acetate 100 mcg/ Sodium Chloride 51 ml @ 204 mls/hr ONCE ONCE IV 09/24/24 02:00 09/24/24 02:14 DC 09/24/24 02:48 Octreotide Acetate 500 mcg/ Sodium Chloride 100 ml @ 10 mls/hr Q10H IV 09/24/24 02:00 09/24/24 05:17 DC 09/24/24 02:53 Sodium Chloride 2,000 ml @ 1,000 mls/hr Q2H ONCE IV 09/24/24 02:00 09/24/24 03:59 DC 09/24/24 02:12 Labetalol HCl (Labetalol HCl) 20 mg ONCE ONCE IV 09/24/24 02:00 09/24/24 02:01 DC 09/24/24 02:13 Ondansetron HCl (Zofran) 4 mg ONCE ONCE IV 09/24/24 02:15 09/24/24 02:16 DC 09/24/24 02:12 Ondansetron HCl (Zofran) 4 mg ONCE ONCE IV 09/24/24 03:30 09/24/24 03:32 DC 09/24/24 03:37 Haloperidol Lactate (Haldol) 2.5 mg ONCE ONCE IM 09/24/24 03:30 09/24/24 03:32 DC 09/24/24 03:37 Pantoprazole Sodium 50 ml @ 10 mls/hr Q5H ONCE IV 09/24/24 05:15 09/24/24 10:14 09/24/24 05:42 Metoclopramide HCl (Reglan Injection) 10 mg ONCE ONCE IV 09/24/24 05:15 09/24/24 05:21 DC 09/24/24 05:39 Morphine Sulfate 4 mg ONCE ONCE IV 09/24/24 05:15 09/24/24 05:21 DC 09/24/24 05:41 Piperacillin Sod/ Tazobactam Sod 100 ml @ 100 mls/hr ONCE ONCE IV 09/24/24 05:15 09/24/24 06:14 09/24/24 05:41 [place] [address]. Hemoglobin is 15.6. Time of 1ST Reevaluation: 02:09 Reevaluation 1ST: Unchanged Patient Education/Counseling: Diagnosis, Treatment Family Education/Counseling: No Family Present Departure 1 Departure Time of Disposition: 04:30 Impression: Primary Impression: Colitis Disposition: 09 ADMITTED INPATIENT Admit to: Med Surg Condition: Guarded Critical Care Note Critical Care Time?: Yes (35 min-critical care time only) Critical care comment: Active GI bleed Stability Stability form required: No Heart Score Heart Score: Heart Score Response (Comments) Value History N/A 0 EKG N/A 0 Age N/A 0 Risk Factors N/A 0 Troponin N/A 0 Total 0 I personally scribed for SUSY DAVIS MD ([email or web address]) on 09/24/24 at 02:13. Electronically submitted by Eliseo Urban ([facility]). SUSY DAVIS MD Sep 24, 2024 02:13
[2024-09-24] MEDS: OCTREOTIDE ACETATE 100 MCG in SODIUM CHL 0.9% 50 ML IV ONE (02:48)
[2024-09-24] MEDS: OCTREOTIDE ACETATE 500 MCG in SODIUM CHL 0.9% 99 ML IV SCH ×2 (02:53→14:00)
[2024-09-24] MEDS: OCTREOTIDE ACETATE 500 MCG/ML VL ONE (02:53)
[2024-09-24] MEDS: OCTREOTIDE ACETATE 100 MCG/ML VL ONE (02:53)
[2024-09-24] MEDS: HALOPERIDOL LACTATE 5 MG/ML INJ VIAL IM ONE (03:37)
[2024-09-24 03:54] LABS: Basophils # (auto) 0 10 ^3/uL (0-0.2); Basophils % (auto) 0.2 % (0.0-2.0); Eosinophils # (auto) 0 10 ^3/uL (0-0.8); Hematocrit 47.7 % (41.0-53.0); Hemoglobin 15.6 g/dL (13.5-17.5); Lymphocytes # (auto) 0.8 10 ^3/uL (0.4-5.4); Lymphocytes % (auto) 5.8 % (10.0-50.0); Mean Corpuscular Hemoglobin 29.4 pg (28.0-32.0); Mean Corpuscular Hgb Conc. 32.7 g/dL (32.0-36.0); Mean Corpuscular Volume 90.1 fL (80.0-100.0); Monocytes # (auto) 0.7 10 ^3/uL (0-1.3); Monocytes % (auto) 5.1 % (0.0-12.0); Neutrophils # (auto) 12.4 10 ^3/uL (1.6-8.6); Neutrophils % (auto) 88.9 % (37.0-80.0); Nucleated Red Blood Cells % 0.2 %; Platelet Count (auto) 229 10^3/uL (140-450); Red Blood Cells 5.29 10^6/uL (4.5-5.90); Red Cell Distribution Width 14.4 % (11.8-14.3)
--- NOTE | 2024-09-24 04:36 | DVH ---
Exam: CT CT AB PEL WO CON-NO ORAL OR IV History: gi bleed Comparison Study: 06/18/2021 TECHNIQUE: Multidetector CT of the abdomen was performed from lung bases to pubic symphysis. Imaging was performed without IV contrast. Axial, coronal and sagittal multiplanar reformats were obtained fr om the axial data set by the technologist. Radiation optimization: All CT scans at this facility use at least one of these dose optimization shay hniques: automated exposure control mA and/or kV adjustment per patient size (includes targeted exam s where dose is matched to clinical indication) or iterative reconstruction. Radiation Dose Information: CT Dose: CTDI volume is 7.3 mGy. Dose-length product is 436.2 mGy*cm FINDINGS: Evaluation of solid organs is limited due to lack of intravenous contrast use. Findings: Imaged portions of the lung bases appear unremarkable. Examination is significantly limited by patient motion. The liver, spleen, pancreas and adrenal glands appear grossly unremarkable. Focal areas of right renal atrophy and calcification appear stable. No evidence of hydronephrosis. Evaluation of the bowel is markedly limited given motion, however no evidence of bowel obstruction . Possible wall thickening in pericolonic fat stranding along the descending colon very mild if real. P ostsurgical changes of the right lower quadrant likely relate to prior appendectomy. No free fluid, free air, or adenopathy. No suspicious osseous lesion. IMPRESSION: 1. Limited evaluation secondary to motion. 2. Possible mild descending colonic wall thickening May relate to focal colitis.
[2024-09-24 05:38] LABS: Alanine Aminotransferase 26 U/L (7-40); Albumin 4.4 g/dL (3.2-4.8); Anion Gap 12 (5-15); Aspartate Aminotransferase 16 U/L (13-40); BUN/Creatinine Ratio 10.7 (10.0-20.0); Calcium 9.7 mg/dL (8.7-10.4); Carbon Dioxide 22 mmol/L (20-31); Chloride 104 mmol/L (98-107); Potassium 4.3 mmol/L (3.5-5.1); Sodium 138 mmol/L (136-145); Total Protein 6.8 g/dL (5.7-8.2)
[2024-09-24] MEDS: METOCLOPRAMIDE HCL 5MG/ml INJ 2ml VIAL IV ONE (05:39)
[2024-09-24] MEDS: MORPHINE SULFATE 4 MG/ML SYR/VIAL IV ONE (05:41)
[2024-09-24] MEDS: PIPERACILLIN-TAZOB 3.375GM 100 ML IV ONE ×2 (05:41→09:53)
[2024-09-24] MEDS: PANTOPRAZOLE 40mg/50ML NS AE 50 ML IV ONE (05:42)
[2024-09-24 05:55] LABS: INR 1.08 (0.9-1.15); Partial Thromboplastin Time 20.8 SEC (24.5-34.5); Prothrombin Time 11.4 sec (9.3-11.8)
[2024-09-24 05:58] LABS: Alkaline Phosphatase 119 U/L (46-116); Bilirubin, Total 1.4 mg/dL (0.2-1.0); Blood Urea Nitrogen 9 mg/dL (9-23); Glucose 221 mg/dL (74-106)
[2024-09-24 07:06] LABS: Urine Bacteria None Seen /hpf (None Seen)
[2024-09-24 07:24] LABS: Urine Blood Negative /uL (Negative); Urine Clarity Turbid (Clear); Urine Color Colorless (Yellow); Urine Mucus FEW (None Seen); Urine Protein, UAD 1+ (Negative); Urine Squamous Epithelial Cell FEW /hpf (<5); Urine Urobilinogen Normal (Negative); Urine WBC 17 /HPF (0-3); Urine pH 7.5 (5.0-9.0)
--- NOTE | 2024-09-24 07:25 | DVHHP2 ---
History of Present Illness Reason for Visit: GI bleed History of Present Illness 38-year-old male past medical history meth abuse in the past alcohol use in the past nonverbal CVA with right-sided deficits PUD hyperlipidemia GERDs arthritis diabetes CAD with stents chief complaint patient was nonverbal information taken from the chart but he is able to shake his head yes and no when asking questions but he did state he has some coffee-ground emesis with no bright red blood patient currently on Eliquis. He also complain of epigastric pain. No rectal bleeding. According to the ED records patient has no history of GI bleed. When when evaluating patient's labs and imaging Zosyn was given morphine Reglan Haldol Sandostatin labetalol normal saline white count was 14.0 glucose was 221 total bili was 1.4. CT scan of the abdomen pelvis shows colitis. With these findings we will admit patient for further workup and care Past Medical History See HPI above Past Surgical History See HPI above Family History Unable to assess due to patient being nonverbal Past Social History The patient lives at home, denies smoking, alcohol or illicit drugs abuse. Review of Systems Review of Systems Unable to assess due to patient being nonverbal Constitutional: No: Fever, Chills, Sweats, Weakness, Malaise, Other Gastrointestinal: Abdominal Pain, Other (Coffee-ground emesis) Allergies: Coded Allergies: NO KNOWN ALLERGIES (Unverified , 04/02/19) Exam Vital Signs Vital Signs Date Time Temp Pulse Resp B/P (MAP) Pulse Ox O2 Delivery O2 Flow Rate FiO2 09/24/24 07:00 115 20 121/70 (87) 97 09/24/24 02:00 97.2 97.2 09/24/24 02:00 Room Air* 0 21 General Appearance: Alert, Cooperative, No acute distress HEENT: Atraumatic, PERRLA, EOMI, Mucous membr. moist/pink Respiratory: Clear to auscultation, Normal air movement Cardiovascular: Regular rate, Normal S1, Normal S2, No murmurs Abdominal: Normal bowel sounds, Soft, No hepatospenomegaly, No masses, Other (+ guarding and rebound tenderness) Extremities: No clubbing, No cyanosis, No edema, Normal pulses, No te nderness/swelling Skin: No rashes, No breakdown, No significant lesion Neuro: Other (Right-sided paralysis from a stroke) Psych/Mental Status: Other (Patient able to shake head when asked questions) Labs/Xrays CT scan abdomen pelvis shows colitis I reviewed labs, imaging CT scan abdomen pelvis, EKG and all diagnostic studies on this patient from ED records and the medical chart Labs Test 09/24/24 07:00 09/24/24 04:58 09/24/24 03:32 09/24/24 03:05 Range/Units Prothrombin Time 11.4 9.3-11.8 sec Prothrombin Time INR 1.08 0.9-1.15 Activated Partial Thromboplast Time 20.8 L 24.5-34.5 SEC White Blood Count 14.0 H 4.4-10.8 10^3/uL Red Blood Count 5.29 4.5-5.90 10^6/uL Hemoglobin 15.6 13.5-17.5 g/dL Hematocrit 47.7 41.0-53.0 % Mean Corpuscular Volume 90.1 80.0-100.0 fL Mean Corpuscular Hemoglobin 29.4 28.0-32.0 pg Mean Corpuscular Hemoglobin Concent 32.7 32.0-36.0 g/dL Red Cell Distribution Width 14.4 H 11.8-14.3 % Platelet Count 229 140-450 10^3/uL Mean Platelet Volume 8.8 6.9-10.8 fL Neutrophils (%) (Auto) 88.9 H 37.0-80.0 % Lymphocytes (%) (Auto) 5.8 L 10.0-50.0 % Monocytes (%) (Auto) 5.1 0.0-12.0 % Eosinophils (%) (Auto) 0.0 0.0-7.0 % Basophils (%) (Auto) 0.2 0.0-2.0 % Neutrophils # (Auto) 12.4 H 1.6-8.6 10 ^3/uL Lymphocytes # (Auto) 0.8 0.4-5.4 10 ^3/uL Monocytes # (Auto) 0.7 0-1.3 10 ^3/uL Eosinophils # (Auto) 0 0-0.8 10 ^3/uL Basophils # (Auto) 0 0-0.2 10 ^3/uL Nucleated Red Blood Cells 0.2 % Sodium Level 138 136-145 mmol/L Potassium Level 4.3 3.5-5.1 mmol/L Chloride Level 104 98-107 mmol/L Carbon Dioxide Level 22 20-31 mmol/L Anion Gap 12 5-15 Blood Urea Nitrogen 9 9-23 mg/dL Creatinine 0.84 0.700-1.30 mg/dL Glomerular Filtration Rate Calc 116 >90 mL/min BUN/Creatinine Ratio 10.7 10.0-20.0 Serum Glucose 221 H 74-106 mg/dL Calcium Level 9.7 8.7-10.4 mg/dL Total Bilirubin 1.4 H 0.2-1.0 mg/dL Aspartate Amino Transferase (AST) 16 13-40 U/L Alanine Aminotransferase (ALT) 26 7-40 U/L Alkaline Phosphatase 119 H 46-116 U/L Total Protein 6.8 5.7-8.2 g/dL Albumin 4.4 3.2-4.8 g/dL POC Glucose 214 H 70-106 mg/dl Assessment/Plan Assessment/Plan acute upper gi bleed with hx of pud ct scan shows colitis no active bleeding seen ordered protonix drip ordered Consult GI fu results fu results N.p.o. ordered IV fluids can Type and screen to transfuse if downtrend in hgb <8.0 hold anticoags for now eliquis since bleeding ordered pt/inr ng tube if excessive bleeding ordered zosyn for now hemoglobin q6h cont Sandostatin drip acute colitis found on ct scan ordered zosyn for now gi consult fu recs acute leukocytosis like related to gi bleed and colitis ordered zosyn for now chronic problems cva with right side weakness and nonverbal arthritis dm ISS pud hld gerds fen/ppx npo ivf protonix scd no dvt ppx since hx of gerds or gi bleed plan admit to medicine gi consult fu results Plan discussed with: Patient Date of Service: Sep 24, 2024 Billing Provider: SHIRA YOUNG DNP Common Visit Codes: [id number] INP/OBS CARE (HIGH) SHIRA YOUNG DNP Sep 24, 2024 07:25
[2024-09-24] MEDS ORDERED: DEXTROSE (50%) 50ML SYRG IV PRN (09:15)
[2024-09-24] MEDS ORDERED: PANTOPRAZOLE 40mg/50ML NS AE 50 ML IV SCH (09:15)
[2024-09-24] MEDS ORDERED: NITROGLYCERIN 0.4 MG SL TAB SL PRN (09:15)
[2024-09-24] MEDS ORDERED: ONDANSETRON HCL 4 MG/2 ML VIAL IV PRN (09:15)
[2024-09-24] MEDS ORDERED: DOCUSATE SOD 100 MG CAP PO PRN (09:15)
[2024-09-24] MEDS: SODIUM CHLORIDE 0.9% 1,000 ML IV SCH (09:52)
[2024-09-24] MEDS ORDERED: ERGOCALCIFEROL 50,000 UNIT(1.25MG) CAP PO SCH (10:00)
[2024-09-24] MEDS ORDERED: CHOLECALCIFEROL (VITD3) 1,000UNIT=25mCg TAB PO SCH (10:00)
--- NOTE | 2024-09-24 10:22 | DVHCONRES ---
Date Seen: Sep 24, 2024 Resident Creating Document: DAYTON PEREZ RESIDENT Referring Physician Jessie NAVARRETE Reason for Consultation Upper GI bleed History of Present Illness History of Present Illness Patient is 38-year-old male with past medical history of esophageal varices, chronic pancreatitis, history of GI bleed who came to the hospital with a chief complaint of worsening nausea and vomiting for past two days with bloody vomiting, associated with epigastric abdominal pain. Patient is nonverbal, given history of CVA with right-sided residual weakness, patient was not able to provide any information he is answering questions in yes and no. GI consultation has been done for evaluation upper GI bleed. At the time of evaluation patient tachycardic and hypertensive, saturating 98% on room air. No signs of diarrhea, fever, any other symptoms at this point. Patient will be kept NPO, continue to monitor hemoglobin hematocrit and we will continuously monitor for further evaluation may necessary to do EGD. Past Medical History CVA with right-sided residual weakness Coronary artery disease PTCA History of alcohol abuse and meth use. History of GI bleed Esophageal varices Fatty liver History of chronic pancreatitis Diabetes Hypertension Dyslipidemia Past Surgical History Endoscopy(12/19/2019) : 1. He had a 3 cm sliding type hiatal hernia with severe grade C linear erosive esophagitis with distal esophageal ulcerations extending mcc up the length of the esophagus. 2. He had mild antral gastritis. 3. Mild gastropathy of the proximal fundus, otherwise normal examination up to the second and third part of the duodenum with good bile drainage and no active bleeding. Family History Diabetes and hypertension Social History History of alcohol abuse and meth use. Family History: Arthritis G8 MOTHER Diabetes mellitus G8 MOTHER Allergies: Coded Allergies: NO KNOWN ALLERGIES (Unverified , 04/02/19) Home Meds Reported Medications Lisinopril (Lisinopril) 20 Mg Tab, 25 MG PO DAILY for 30 Days, MG 06/18/21 Metformin HCl (Metformin Hydrochloride) 1,000 Mg Tab, 1000 MG PO UNKNOWN FREQUENCY 06/18/21 Cholecalciferol (Vitamin D3) 50,000 Unit Cap, 1 CAP PO QWEEKLY 06/18/21 Lisinopril (Lisinopril) 2.5 Mg Tab, 1 TAB PO DAILY 06/18/21 Glyburide (Glyburide) 5 Mg Tab, 2 TAB PO BID 06/18/21 Famotidine (PEPCID TABLET) 20 Mg Tb, 1 TAB PO BID 06/18/21 Atorvastatin Calcium (Lipitor) 40 Mg Tab, 1 TAB PO QPM 04/04/19 Current Medications Current Medications Medications (Trade) Dose Ordered Sig/Sp Route PRN Reason Start Time Stop Time Status Last Admin Octreotide Acetate 500 mcg/ Sodium Chloride 100 ml @ 10 mls/hr Q10H IV 09/24/24 02:00 09/24/24 05:17 DC 09/24/24 02:53 Pantoprazole Sodium 50 ml @ 10 mls/hr Q5H IV 09/24/24 09:15 09/24/24 09:34 DC Piperacillin Sod/ Tazobactam Sod 100 ml @ 25 mls/hr Q6H IV 09/24/24 16:00 Diagnostic Test (Pha) (Accu-Chek Comfort Curve T) 1 strip ACHS 09/24/24 11:30 Insulin Human Regular (InsuLIN R) ACHS SC 09/24/24 11:30 Dextrose 50 ml UD PRN IV Blood Sugar LESS THAN 60 09/24/24 09:15 Atorvastatin Calcium (Lipitor) 40 mg HS PO 09/24/24 22:00 Cholecalciferol (Vitamin D3 Tablet) 5,000 unit DAILY PO 09/24/24 10:00 09/24/24 09:49 DC Sodium Chloride 1,000 ml @ 120 mls/hr Q8H20M IV 09/24/24 09:15 09/24/24 09:52 Ondansetron HCl (Zofran) 4 mg Q4HP PRN IV NAUSEA / VOMITING 09/24/24 09:15 Docusate Sodium (Colace Capsule) 100 mg BIDPRN PRN PO FOR CONSTIPATION 09/24/24 09:15 Morphine Sulfate 2 mg Q4HPRN PRN IV SEVERE PAIN (7-10 PAIN SCALE) 09/24/24 09:15 Nitroglycerin (Ntrostat Sublingual) 0.4 mg Q5MINP PRN SL FOR CHEST PAIN 09/24/24 09:15 Ergocalciferol (Vitamin D 50,000 Unit) 50,000 unit QWEEKLY PO 09/24/24 10:00 Review of Systems Eyes: No Pain, No Vision change, No Conjunctivae inflammation, No Eyelid inflammation, No Other, No Redness ENT: No Ear pain, No Ear discharge, No Nose pain, No Nose discharge, No Nose congestion, No Mouth pain, No Mouth swelling, No Throat pain, No Throat swelling, No Other Cardiovascular: No Chest Pain, No Palpitations, No Orthopnea, No Paroxysmal Noc. Dyspnea, No Edema, No Lt Headedness, No Other Respiratory: No Cough, No Dry, No Shortness of breath, No SOB with excertion, No Wheezing, No Hemoptysis, No Pleuritic Pain, No Sputum, No Other Gastrointestinal: Nausea, Vomiting, Abdominal Pain, No Diarrhea, No Constipation, No Melena, Hematochezia, No Other Genitourinary: No Dysuria, No Frequency, No Incontinence, No Hematuria, No Retention, No Other Musculoskeletal: No other, No neck pain, No shoulder pain, No arm pain, No back pain, No hand pain, No leg pain, No foot pain Skin: No Rash, No Lesions, No Jaundice, No Bruising, No Other Vital Signs Vital Signs Date Time Temp Pulse Resp B/P (MAP) Pulse Ox O2 Delivery O2 Flow Rate FiO2 09/24/24 08:15 Room Air* 0 21 09/24/24 08:00 114 09/24/24 08:00 16 140/88 (105) 96 09/24/24 02:00 97.2 97.2 Labs/Diagnostic Data Labs Test 09/24/24 07:00 09/24/24 04:58 09/24/24 03:32 09/24/24 03:05 Range/Units Urine Color Colorless Yellow Urine Clarity Turbid H Clear Urine pH 7.5 5.0-9.0 Urine Specific [place] 1.020 1.001-1.035 Urine Protein 1+ H Negative Urine Ketones 2+ H Negative Urine Blood Negative Negative /uL Urine Nitrite Negative Negative Urine Bilirubin Negative Negative Urine Urobilinogen Normal Negative mg/dL Urine Leukocyte Esterase 2+ Negative /uL Urine RBC 1 0 - 3 /hpf Urine Microscopic WBC 17 H 0-3 /HPF Urine Squamous Epithelial Cells Few <5 /hpf Urine Bacteria None seen None Seen /hpf Urine Mucus Few None Seen Urine Glucose Normal Normal mg/dL Prothrombin Time 11.4 9.3-11.8 sec Prothrombin Time INR 1.08 0.9-1.15 Activated Partial Thromboplast Time 20.8 L 24.5-34.5 SEC White Blood Count 14.0 H 4.4-10.8 10^3/uL Red Blood Count 5.29 4.5-5.90 10^6/uL Hemoglobin 15.6 13.5-17.5 g/dL Hematocrit 47.7 41.0-53.0 % Mean Corpuscular Volume 90.1 80.0-100.0 fL Mean Corpuscular Hemoglobin 29.4 28.0-32.0 pg Mean Corpuscular Hemoglobin Concent 32.7 32.0-36.0 g/dL Red Cell Distribution Width 14.4 H 11.8-14.3 % Platelet Count 229 140-450 10^3/uL Mean Platelet Volume 8.8 6.9-10.8 fL Neutrophils (%) (Auto) 88.9 H 37.0-80.0 % Lymphocytes (%) (Auto) 5.8 L 10.0-50.0 % Monocytes (%) (Auto) 5.1 0.0-12.0 % Eosinophils (%) (Auto) 0.0 0.0-7.0 % Basophils (%) (Auto) 0.2 0.0-2.0 % Neutrophils # (Auto) 12.4 H 1.6-8.6 10 ^3/uL Lymphocytes # (Auto) 0.8 0.4-5.4 10 ^3/uL Monocytes # (Auto) 0.7 0-1.3 10 ^3/uL Eosinophils # (Auto) 0 0-0.8 10 ^3/uL Basophils # (Auto) 0 0-0.2 10 ^3/uL Nucleated Red Blood Cells 0.2 % Sodium Level 138 136-145 mmol/L Potassium Level 4.3 3.5-5.1 mmol/L Chloride Level 104 98-107 mmol/L Carbon Dioxide Level 22 20-31 mmol/L Anion Gap 12 5-15 Blood Urea Nitrogen 9 9-23 mg/dL Creatinine 0.84 0.700-1.30 mg/dL Glomerular Filtration Rate Calc 116 >90 mL/min BUN/Creatinine Ratio 10.7 10.0-20.0 Serum Glucose 221 H 74-106 mg/dL Calcium Level 9.7 8.7-10.4 mg/dL Total Bilirubin 1.4 H 0.2-1.0 mg/dL Aspartate Amino Transferase (AST) 16 13-40 U/L Alanine Aminotransferase (ALT) 26 7-40 U/L Alkaline Phosphatase 119 H 46-116 U/L Total Protein 6.8 5.7-8.2 g/dL Albumin 4.4 3.2-4.8 g/dL POC Glucose 214 H 70-106 mg/dl Assessment Upper GI bleed likely possibly related to esophageal varices, acute gastritis or hiatal hernia. Nausea and vomiting ? Gastroparesis Acute colitis History of upper GI bleed History of esophageal varices Hypertensive urgency CVA with right-sided residual weakness Coronary artery disease PTCA History of alcohol abuse and meth use. History of GI bleed History of chronic pancreatitis Diabetes Hypertension Dyslipidemia Plan/recommended Dr Lucas -continue IV Protonix drip and octreotide drip for upper GI bleed. -keep NPO -continue to monitor H and H q.12 -possibly scheduling for upper GI endoscopy tomorrow. -scheduled ondansetron and metoclopramide for intractable nausea and vomiting. -continue IV hydration -IV antibiotic as per hospitalist team. -we will continue monitoring this patient Plan discussed with: Patient, Other DAYTON PEREZ RESIDENT Sep 24, 2024 10:22
[2024-09-24] MEDS: ACCU-CHEK COMFORT CURVE STRIP VI SCH (11:36)
[2024-09-24] MEDS: InsuLIN REG 1unit/0.01ml Soln (100units/ml) SC SCH (11:37)
[2024-09-24 13:35] LABS: Hematocrit 42.1 % (41.0-53.0); Hemoglobin 14.1 g/dL (13.5-17.5)
[2024-09-24 13:50] LABS: Lipase 23 U/L (12-53)
[2024-09-24 13:54] LABS: Amylase 27 U/L (30-118)
[2024-09-24] MEDS: ONDANSETRON HCL 4 MG/2 ML VIAL IV SCH (14:41)
[2024-09-24] MEDS: METOCLOPRAMIDE HCL 5MG/ml INJ 2ml VIAL IV SCH (14:41)
[2024-09-24 16:03] VITALS: PULSE 104; RESP 18; O2SAT 94
[2024-09-24 17:00] VITALS: BP 145/115; PULSE 104; RESP 18; TEMP 98.8; O2SAT 94
[2024-09-24] MEDS: PIPERACILLIN-TAZOB 3.375GM 100 ML IV SCH (17:32)
[2024-09-24 18:52] LABS: Hematocrit 38.8 % (41.0-53.0); Hemoglobin 13.3 g/dL (13.5-17.5)
[2024-09-24 19:30] VITALS: BP 135/88; PULSE 104; TEMP 98.8; O2SAT 97
[2024-09-24 20:04] VITALS: BP 135/83; PULSE 104; RESP 18; TEMP 98.8; O2SAT 97
[2024-09-24 20:38] VITALS: BP 135/83; PULSE 104; TEMP 98.8; O2SAT 97
[2024-09-24] MEDS: ATORVASTATIN 20 MG TAB PO SCH (22:00)
[2024-09-25] VITALS (11 sets, daily range): BP systolic 143–163; BP diastolic 75–109; PULSE 16–130; RESP 14–18; TEMP 98.1–98.7; O2SAT 92–100
[2024-09-25] MEDS: MORPHINE SULFATE INJ 2 MG/ml SYRG IV PRN (00:40)
[2024-09-25 01:33] LABS: Hematocrit 40.8 % (41.0-53.0); Hemoglobin 13.9 g/dL (13.5-17.5)
[2024-09-25] MEDS: hydrALAZINE HCL 20 MG/ML VL IV ONE (10:15)
--- NOTE | 2024-09-25 11:32 | DVHPN2 ---
Subjective The patient is seen and examined at bedside. No change overnight. Hemoglobin stable. Patient nonverbal. Reviewed: Care Plan, H&P, Labs, Medications, Previous Orders, Radiology Changes from previous H/P or p: No Changes Gastrointestinal: Abdominal Pain, Other (Coffee-ground emesis) Objective Vitals Vital Signs Date Time Temp Pulse Resp B/P (MAP) Pulse Ox O2 Delivery O2 Flow Rate FiO2 09/25/24 10:15 163/108 09/25/24 09:30 101 09/25/24 09:00 98.7 16 96 98.7 09/24/24 20:00 Room Air* 0 21 Intake/Output Intake and Output 09/25/24 07:00 Intake Total 950 ml Output Total 1150 ml Balance -200 ml Intake Oral 0 ml IV Total 950 ml Output Urine Total 1150 ml General Appearance: Alert, No acute distress HEENT: Atraumatic, PERRLA, EOMI, Mucous membr. moist/pink Neck: Supple Lungs: Clear to auscultation, Normal air movement Cardiovascular: Regular rate, Normal S1, Normal S2, No murmurs, Gallops, Rubs Abdomen: Normal bowel sounds, Soft, No tenderness Neuro: Cranial nerves 3-12 NL Psych/Mental Status: Mental status NL Medications Current Medications Medications Dose Ordered Sig/Sp Route Start Time Stop Time Status Last Admin Dose Admin Piperacillin Sod/ Tazobactam Sod 100 ml @ 25 mls/hr Q6H IV 09/24/24 16:00 09/25/24 10:15 25 MLS/HR Diagnostic Test (Pha) 1 strip ACHS 09/24/24 11:30 09/25/24 05:42 1 STRIP Insulin Human Regular ACHS SC 09/24/24 11:30 09/25/24 06:10 3 UNITS Dextrose 50 ml UD PRN IV 09/24/24 09:15 Atorvastatin Calcium 40 mg HS PO 09/24/24 22:00 Sodium Chloride 1,000 ml @ 120 mls/hr Q8H20M IV 09/24/24 09:15 09/25/24 02:24 120 MLS/HR Ondansetron HCl 4 mg Q4HP PRN IV 09/24/24 09:15 Hold Docusate Sodium 100 mg BIDPRN PRN PO 09/24/24 09:15 Morphine Sulfate 2 mg Q4HPRN PRN IV 09/24/24 09:15 09/25/24 05:24 2 MG Nitroglycerin 0.4 mg Q5MINP PRN SL 09/24/24 09:15 Ergocalciferol 50,000 unit QWEEKLY PO 09/24/24 10:00 Ondansetron HCl 4 mg Q8HR IV 09/24/24 14:00 09/25/24 05:13 4 MG Metoclopramide HCl 5 mg Q8HR IV 09/24/24 14:00 09/25/24 05:11 5 MG Octreotide Acetate 500 mcg/ Sodium Chloride 100 ml @ 10 mls/hr Q10H IV 09/24/24 11:45 09/25/24 08:10 10 MLS/HR Pantoprazole Sodium 40 mg BID IV 09/25/24 22:00 UNV Laboratory Results Laboratory Tests 09/24/24 03:32 09/25/24 00:24 Lipid panel Test 09/24/24 13:26 Lipase 23 U/L (12-53) Urinalysis Test 09/24/24 07:00 Urine Color Colorless (Yellow) Urine Clarity Turbid (Clear) H Urine pH 7.5 (5.0-9.0) Urine Specific [place] 1.020 (1.001-1.035) Urine Protein 1+ (Negative) H Urine Ketones 2+ (Negative) H Urine Blood Negative /uL (Negative) Urine Nitrite Negative (Negative) Urine Bilirubin Negative (Negative) Urine Urobilinogen Normal mg/dL (Negative) Urine Leukocyte Esterase 2+ /uL (Negative) Urine RBC 1 /hpf (0 - 3) Urine Microscopic WBC 17 /HPF (0-3) H Urine Squamous Epithelial Cells Few /hpf (<5) Urine Bacteria None seen /hpf (None Seen) Urine Mucus Few (None Seen) Urine Glucose Normal mg/dL (Normal) Labs and/or images reviewed: Labs reviewed by me Assessment/Plan Assessment/Plan acute upper gi bleed with hx of pud acute colitis acute leukocytosis like related to gi bleed and 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 Continuing with IV antibiotic. Continuing with IV fluid. Transfuse as needed if hemoglobin less than seven. So far hemoglobin is stable, today is 13.9 Continuing with octreotide drip. Waiting for GI specialist for endoscopy today. Continuing sliding scale insulin Plan discussed with: Patient Date of Service: Sep 25, 2024 Billing Provider: BRADY FALL MD Common Visit Codes: [id number] INP/OBS CARE(HIGH) BRADY FALL MD Sep 25, 2024 11:32
--- NOTE | 2024-09-25 13:23 | ECG ---
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
--- NOTE | 2024-09-25 13:23 | ECG ---
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
[2024-09-25] MEDS: PANTOPRAZOLE 40 MG/10 ML VIAL INJ IV ONE (13:44)
[2024-09-25 13:57] LABS: Alanine Aminotransferase 21 U/L (7-40); Albumin 4.7 g/dL (3.2-4.8); Alkaline Phosphatase 104 U/L (46-116); Anion Gap 9 (5-15); BUN/Creatinine Ratio 12.2 (10.0-20.0); Blood Urea Nitrogen 12 mg/dL (9-23); Calcium 10.1 mg/dL (8.7-10.4); Carbon Dioxide 30 mmol/L (20-31); Chloride 99 mmol/L (98-107); Potassium 4.1 mmol/L (3.5-5.1); Sodium 138 mmol/L (136-145)
[2024-09-25 13:58] LABS: Total Protein 7.1 g/dL (5.7-8.2)
[2024-09-25 14:01] LABS: Aspartate Aminotransferase 8 U/L (13-40); Bilirubin, Total 2.5 mg/dL (0.2-1.0); Glucose 173 mg/dL (74-106)
[2024-09-25] MEDS ORDERED: LIDOCAINE 2% (LOCAL ANESTH.) PF 5ml SDV ONE (14:06)
[2024-09-25] MEDS ORDERED: PROPOFOL 10 MG/ML 20 ML IV ONE (14:06)
[2024-09-25 14:10] LABS: Hematocrit 39.4 % (41.0-53.0); Hemoglobin 13.3 g/dL (13.5-17.5)
--- NOTE | 2024-09-25 14:53 | DVHOP2 ---
Operative Report DATE OF OPERATION: 09/25/24 PROCEDURE: Upper Endoscopy with biopsy. PREOPERATIVE INDICATION: The patient is a 38 -year-old male undergoing endoscopy for upper GI bleed POSTOPERATIVE DIAGNOSES: 1. 2-3 cm sliding-type hiatal hernia with the acute grade C linear erosive esophagitis with distal esophageal ulcers extending into 8-10 cm of the esophagus with superficial oozing and increase oozing at biopsy sites 2. Minimal gastroduodenitis otherwise normal examination up to the 2nd and 3rd part of the duodenum PROCEDURE PERFORMED BY: Isaias Lucas GI NURSE: Matheus SCOPE: Olympus videoendoscope. ASA CLASS: 2. PREOPERATIVE MEDICATIONS: Mac sedation, Jong Frye PROCEDURE IN DETAIL: After obtaining an informed consent, the patient was placed on left lateral decubitus position. The patient was then sedated with the above medications. A bite block was placed between his teeth. The endoscope was then passed through the oropharynx, into the esophagus, and through the stomach and pylorus up to the second and third part of the duodenum. The endoscope was then withdrawn. The 2nd and 3rd part of the duodenum and the duodenal bulb were normal. Duod enal biopsies were obtained The pre-pyloric area and antrum and body showed minimal gastritis. Gastric biopsies were obtained. There was no fresh or old blood in the stomach or duodenal The endoscope was then withdrawn into the distal esophagus where he had a 2-3 cm sliding-type hiatal hernia with the acute grade C erosive esophagitis with superficial oozing. Patient had circumferential ulceration in the distal esophagus and linear ulcers extending into the distal 8-10 cm of the esophagus from which biopsies were obtained The remaining mid to proximal esophagus and oropharynx were unremarkable The patient tolerated the procedure well without difficulty. COMPLICATIONS : None SPECIMENS: Duodenal biopsy Gastric biopsy Esophageal biopsy DISPOSITION: Transfer back to the floor Stable PLAN: 1. Await for biopsy result 2. Will place pt on Protonix 40 mg bid 3. Carafate 1 g p.o. 4 times a day 4. Full liquid diet advance as tolerated 5. DC aspirin NSAIDs smoking alcohol 6. Outpatient follow up with me in 6-8 weeks to review results and discuss further management ISAIAS LUCAS MD Sep 25, 2024 14:53
[2024-09-25] MEDS: hydrALAZINE HCL 20 MG/ML VL IV PRN (16:24)
[2024-09-25] MEDS: SUCRALFATE 1 GM/10 ML ORAL SUSP PO SCH (17:00)
[2024-09-25 19:38] LABS: Hematocrit 41.3 % (41.0-53.0); Hemoglobin 13.9 g/dL (13.5-17.5)
[2024-09-25] MEDS: PANTOPRAZOLE 40 MG/10 ML VIAL INJ IV SCH (21:53)
[2024-09-26] VITALS (8 sets, daily range): BP systolic 123–176; BP diastolic 73–96; PULSE 107–127; RESP 16–18; TEMP 98.2–98.8; O2SAT 94–97
[2024-09-26] MEDS: PIPERACILLIN-TAZOB 3.375GM 100 ML IV SCH (00:08)
--- NOTE | 2024-09-26 10:31 | DVHPN2 ---
Subjective The patient is seen and examined at bedside. No change overnight. Hemoglobin stable. Patient nonverbal. Reviewed: Care Plan, H&P, Labs, Medications, Previous Orders, Radiology Gastrointestinal: Abdominal Pain, Other (Coffee-ground emesis) Objective Vitals Vital Signs Date Time Temp Pulse Resp B/P (MAP) Pulse Ox O2 Delivery O2 Flow Rate FiO2 09/26/24 09:00 98.2 126 17 151/85 (107) 94 98.2 09/25/24 20:00 Room Air* 0 21 Intake/Output Intake and Output 09/26/24 07:00 Intake Total 400 ml Output Total 740 ml Balance -340 ml Intake Oral 200 ml IV Total 200 ml Output Urine Total 740 ml General Appearance: Alert, No acute distress HEENT: Atraumatic, PERRLA, EOMI, Mucous membr. moist/pink Neck: Supple Lungs: Clear to auscultation, Normal air movement Cardiovascular: Regular rate, Normal S1, Normal S2, No murmurs, Gallops, Rubs Abdomen: Normal bowel sounds, Soft, No tenderness Neuro: Cranial nerves 3-12 NL Psych/Mental Status: Mental status NL Medications Current Medications Medications Dose Ordered Sig/Sp Route Start Time Stop Time Status Last Admin Dose Admin Diagnostic Test (Pha) 1 strip ACHS 09/24/24 11:30 09/26/24 05:55 1 STRIP Insulin Human Regular ACHS SC 09/24/24 11:30 09/26/24 06:10 3 UNITS Dextrose 50 ml UD PRN IV 09/24/24 09:15 Atorvastatin Calcium 40 mg HS PO 09/24/24 22:00 09/25/24 21:42 40 MG Sodium Chloride 1,000 ml @ 120 mls/hr Q8H20M IV 09/24/24 09:15 09/26/24 03:30 120 MLS/HR Ondansetron HCl 4 mg Q4HP PRN IV 09/24/24 09:15 Hold Docusate Sodium 100 mg BIDPRN PRN PO 09/24/24 09:15 Morphine Sulfate 2 mg Q4HPRN PRN IV 09/24/24 09:15 09/26/24 05:58 2 MG Nitroglycerin 0.4 mg Q5MINP PRN SL 09/24/24 09:15 Ergocalciferol 50,000 unit QWEEKLY PO 09/24/24 10:00 Ondansetron HCl 4 mg Q8HR IV 09/24/24 14:00 09/26/24 05:54 4 MG Metoclopramide HCl 5 mg Q8HR IV 09/24/24 14:00 09/26/24 05:55 5 MG Octreotide Acetate 500 mcg/ Sodium Chloride 100 ml @ 10 mls/hr Q10H IV 09/24/24 11:45 09/26/24 03:35 10 MLS/HR Pantoprazole Sodium 40 mg BID IV 09/25/24 22:00 09/26/24 09:43 40 MG Hydralazine HCl 10 mg Q6HP PRN IV 09/25/24 12:45 09/26/24 05:55 10 MG Sucralfate 1 gm QID@0600,1130,1700,2200 PO 09/25/24 17:00 09/26/24 05:38 1 GM Piperacillin Sod/ Tazobactam Sod 100 ml @ 25 mls/hr Q8H IV 09/26/24 00:00 09/26/24 08:57 25 MLS/HR Laboratory Results Laboratory Tests 09/24/24 03:32 09/25/24 01:32 09/25/24 18:54 Urinalysis Test 09/24/24 07:00 Urine Color Colorless (Yellow) Urine Clarity Turbid (Clear) H Urine pH 7.5 (5.0-9.0) Urine Specific [place] 1.020 (1.001-1.035) Urine Protein 1+ (Negative) H Urine Ketones 2+ (Negative) H Urine Blood Negative /uL (Negative) Urine Nitrite Negative (Negative) Urine Bilirubin Negative (Negative) Urine Urobilinogen Normal mg/dL (Negative) Urine Leukocyte Esterase 2+ /uL (Negative) Urine RBC 1 /hpf (0 - 3) Urine Microscopic WBC 17 /HPF (0-3) H Urine Squamous Epithelial Cells Few /hpf (<5) Urine Bacteria None seen /hpf (None Seen) Urine Mucus Few (None Seen) Urine Glucose Normal mg/dL (Normal) Assessment/Plan Assessment/Plan acute upper gi bleed with hx of pud acute colitis acute leukocytosis like related to gi bleed and 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 Continuing with IV antibiotic. Continuing with IV fluid. Transfuse as needed if hemoglobin less than seven. So far hemoglobin is stable, today is 13.9 Continuing with octreotide drip. Waiting for GI specialist for endoscopy today. Continuing sliding scale insulin My Orders Orders - BRADY FALL MD Procedure Category Date Status Time Hydralazine Injection PHA 09/25/24 In Process (Apresoline Inject 12:45 BRADY FALL MD Sep 26, 2024 10:31
[2024-09-26] MEDS ORDERED: METF-929 PO (11:08)
[2024-09-26] MEDS ORDERED: PANT40TA2 PO (11:08)
[2024-09-26] MEDS ORDERED: SUCR1SUS26 PO (11:08)
--- NOTE | 2024-09-26 11:13 | DVHDS2 ---
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 dm type 2 Peptic ulcer disease Hyperlipidemia GERD Labs/Diagnostic Data: Laboratory Results Test 09/26/24 05:59 09/25/24 18:54 09/25/24 01:32 09/24/24 13:26 POC Glucose 162 mg/dl (70-106) Hemoglobin 13.9 g/dL (13.5-17.5) Hematocrit 41.3 % (41.0-53.0) Sodium Level 138 mmol/L (136-145) Potassium Level 4.1 mmol/L (3.5-5.1) Chloride Level 99 mmol/L (98-107) Carbon Dioxide Level 30 mmol/L (20-31) Anion Gap 9 (5-15) Blood Urea Nitrogen 12 mg/dL (9-23) Creatinine 0.98 mg/dL (0.700-1.30) Glomerular Filtration Rate Calc 102 mL/min (>90) BUN/Creatinine Ratio 12.2 (10.0-20.0) Serum Glucose 173 mg/dL (74-106) Calcium Level 10.1 mg/dL (8.7-10.4) Total Bilirubin 2.5 mg/dL (0.2-1.0) Aspartate Amino Transferase (AST) 8 U/L (13-40) Alanine Aminotransferase (ALT) 21 U/L (7-40) Alkaline Phosphatase 104 U/L (46-116) Total Protein 7.1 g/dL (5.7-8.2) Albumin 4.7 g/dL (3.2-4.8) Amylase Level 27 U/L (30-118) Lipase 23 U/L (12-53) Test 09/24/24 07:00 09/24/24 04:58 09/24/24 03:32 Urine Color Colorless (Yellow) Urine Clarity Turbid (Clear) Urine pH 7.5 (5.0-9.0) Urine Specific [place] 1.020 (1.001-1.035) Urine Protein 1+ (Negative) Urine Ketones 2+ (Negative) Urine Blood Negative /uL (Negative) Urine Nitrite Negative (Negative) Urine Bilirubin Negative (Negative) Urine Urobilinogen Normal mg/dL (Negative) Urine Leukocyte Esterase 2+ /uL (Negative) Urine RBC 1 /hpf (0 - 3) Urine Microscopic WBC 17 /HPF (0-3) Urine Squamous Epithelial Cells Few /hpf (<5) Urine Bacteria None seen /hpf (None Seen) Urine Mucus Few (None Seen) Urine Glucose Normal mg/dL (Normal) Prothrombin Time 11.4 sec (9.3-11.8) Prothrombin Time INR 1.08 (0.9-1.15) Activated Partial Thromboplast Time 20.8 SEC (24.5-34.5) White Blood Count 14.0 10^3/uL (4.4-10.8) Red Blood Count 5.29 10^6/uL (4.5-5.90) Mean Corpuscular Volume 90.1 fL (80.0-100.0) Mean Corpuscular Hemoglobin 29.4 pg (28.0-32.0) Mean Corpuscular Hemoglobin Concent 32.7 g/dL (32.0-36.0) Red Cell Distribution Width 14.4 % (11.8-14.3) Platelet Count 229 10^3/uL (140-450) Mean Platelet Volume 8.8 fL (6.9-10.8) Neutrophils (%) (Auto) 88.9 % (37.0-80.0) Lymphocytes (%) (Auto) 5.8 % (10.0-50.0) Monocytes (%) (Auto) 5.1 % (0.0-12.0) Eosinophils (%) (Auto) 0.0 % (0.0-7.0) Basophils (%) (Auto) 0.2 % (0.0-2.0) Neutrophils # (Auto) 12.4 10 ^3/uL (1.6-8.6) Lymphocytes # (Auto) 0.8 10 ^3/uL (0.4-5.4) Monocytes # (Auto) 0.7 10 ^3/uL (0-1.3) Eosinophils # (Auto) 0 10 ^3/uL (0-0.8) Basophils # (Auto) 0 10 ^3/uL (0-0.2) Nucleated Red Blood Cells 0.2 % Other Laboratory Tests 09/25/24 18:54 09/25/24 01:32 2/16/25 03:32 Brief Hx & Hospital Course: This is a 38 years old male with past medical history of methamphetamine abuse, alcohol abuse, CVA with right-sided deficits, nonverbal, peptic ulcer disease, hyperlipidemia, good, diabetes, coronary artery disease with stent, arthritis brought into emergency department because of coffee brown emesis. Patient currently on Eliquis. The patient was admitted. The patient had CT scan of abdomen pelvis done showed colitis. The patient was put on IV antibiotic with Zosyn, pain controlled with morphine,reglan for nausea and vomiting. The patient's hemoglobin is stable between 10-13. The patient subsequently had EGD done by GI specialist, Dr. Lucas. EGD showed: 2-3 cm sliding-type hiatal hernia with the acute grade C linear erosive esophagitis with distal esophageal ulcers extending into 8-10 cm of the esophagus with superficial oozing and increase oozing at biopsy sites. Minimal gastroduodenitis otherwise normal examination up to the 2nd and 3rd part of the duodenum. Dr. Lucas recommend Protonix 40 mg twice per day and Carafate 1 g 4 times per day. She recommend to follow up with her in 6-8 weeks for repeat EGD. Today the patient is stable. Hemoglobin stable. I am going to discharge him home. Advised him to follow up with primary care physician 1-2 weeks. Follow up with Dr. Lucas per schedule. Physical exam: HEENT: Normocephalic atraumatic pupils equal react to light and accommodation. Extraocular muscles intact, conjunctiva pink, oropharynx moist, no thrush, no exudate. Lymphatic: No lymphadenopathy Cardiovascular exam: S1, S2 was heard. No murmurs, rubs, gallops Lung: Clear on auscultation bilaterally, no wheeze, rale, rhonchi. GI: Abdominal soft, nondistended, nontenderness, positive bowel sounds. Extremity: No crepitus, cyanosis, edema. Pedal pulses present bilateral. Full range of motion. Skin: Normal turgor, no rash. Psych: Alert, oriented x3. Neurology: No focal deficits, cranial nerve II to XII grossly intact. This medical document was created using an electronic medical record system with [employer] direct computerized dictation system. Although this document has been carefully reviewed, there may still be some phonetic and typographical errors. These areas are purely typographical due to imperfections of the software programs, and do not reflect any compromise in the patient's medical care. 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 Patient was counseled about treatment plan, medications, possible side effects, patientverbalized understanding. All questions were answered to the best of my ability. This discharge took greater then 30 minutes in planning, reviewing documentation, counseling the patient, and discussing with other team members." ASSESSMENT ASSESSMENT Assessment GI bleed Date of Service: Sep 26, 2024 Billing Provider: BRADY FALL MD Common Visit Codes: [id number]/[id number] DISCH DAY >30min BRADY FALL MD Sep 26, 2024 11:13
[2024-09-26 13:31] LABS: Basophils # (auto) 0 10 ^3/uL (0-0.2); Basophils % (auto) 0.2 % (0.0-2.0); Eosinophils # (auto) 0 10 ^3/uL (0-0.8); Eosinophils % (auto) 0.1 % (0.0-7.0); Hematocrit 39.7 % (41.0-53.0); Hemoglobin 13.4 g/dL (13.5-17.5); Lymphocytes # (auto) 0.8 10 ^3/uL (0.4-5.4); Lymphocytes % (auto) 8.6 % (10.0-50.0); Mean Corpuscular Hgb Conc. 33.6 g/dL (32.0-36.0); Mean Corpuscular Volume 89.3 fL (80.0-100.0); Monocytes # (auto) 0.8 10 ^3/uL (0-1.3); Monocytes % (auto) 8.5 % (0.0-12.0); Neutrophils # (auto) 7.8 10 ^3/uL (1.6-8.6); Neutrophils % (auto) 82.6 % (37.0-80.0); Platelet Count (auto) 258 10^3/uL (140-450); Red Blood Cells 4.45 10^6/uL (4.5-5.90); Red Cell Distribution Width 14.3 % (11.8-14.3); White Blood Cell 9.4 10^3/uL (4.4-10.8)
--- NOTE | 2024-09-26 14:57 | DVHPN2 ---
Progress Note Date Seen: Sep 26, 2024 Resident Creating Document: DAYTON PEREZ RESIDENT Medical Necessity Reason Pt with a Central, PICC or Fol: No Subjective Review of Systems Patient is 38-year-old male with past medical history of esophageal varices, chronic pancreatitis, history of GI bleed who came to the hospital with a chief complaint of worsening nausea and vomiting for past two days with bloody vomiting, associated with epigastric abdominal pain. Patient is nonverbal, given history of CVA with right-sided residual weakness, patient was not able to provide any information he is answering questions in yes and no. GI consultation has been done for evaluation upper GI bleed. At the time of evaluation patient tachycardic and hypertensive, saturating 98% on room air. No signs of diarrhea, fever, any other symptoms at this point. Patient will be kept NPO, continue to monitor hemoglobin hematocrit and we will continuously monitor for further evaluation may necessary to do EGD. Past Medical History CVA with right-sided residual weakness Coronary artery disease PTCA History of alcohol abuse and meth use. History of GI bleed Esophageal varices Fatty liver History of chronic pancreatitis Diabetes Hypertension Dyslipidemia Past Surgical History Endoscopy(12/19/2019) : 1. He had a 3 cm sliding type hiatal hernia with severe grade C linear erosive esophagitis with distal esophageal ulcerations extending fdc up the length of the esophagus. 2. He had mild antral gastritis. 3. Mild gastropathy of the proximal fundus, otherwise normal examination up to the second and third part of the duodenum with good bile drainage and no active bleeding. Family History Diabetes and hypertension Social History History of alcohol abuse and meth use. Patient is seen and examined at bedside. The patient's upper GI upset significantly improved, dementia, still few episodes of nausea. No any other new complaints. Underwent EGD yesterday. Objective vital signs Vital Sign Date Time Temp Pulse Resp B/P (MAP) Pulse Ox O2 Delivery O2 Flow Rate FiO2 09/26/24 13:00 98.7 112 17 150/96 (114) 97 98.7 09/26/24 08:10 Room Air* 0 21 Total Intake and Output 09/25/24 09/25/24 09/26/24 15:00 23:00 07:00 Intake Total 100 ml 0 ml 300 ml Output Total 500 ml 240 ml Balance 100 ml -500 ml 60 ml medications Current Medications Medications Dose Ordered Sig/Sp Route Start Time Stop Time Status Last Admin Dose Admin Diagnostic Test (Pha) 1 strip ACHS 09/24/24 11:30 09/26/24 11:37 1 STRIP Insulin Human Regular ACHS SC 09/24/24 11:30 09/26/24 11:47 3 UNITS Dextrose 50 ml UD PRN IV 09/24/24 09:15 Atorvastatin Calcium 40 mg HS PO 09/24/24 22:00 09/25/24 21:42 40 MG Sodium Chloride 1,000 ml @ 120 mls/hr Q8H20M IV 09/24/24 09:15 09/26/24 11:48 120 MLS/HR Ondansetron HCl 4 mg Q4HP PRN IV 09/24/24 09:15 Hold Docusate Sodium 100 mg BIDPRN PRN PO 09/24/24 09:15 Morphine Sulfate 2 mg Q4HPRN PRN IV 09/24/24 09:15 09/26/24 05:58 2 MG Nitroglycerin 0.4 mg Q5MINP PRN SL 09/24/24 09:15 Ergocalciferol 50,000 unit QWEEKLY PO 09/24/24 10:00 Ondansetron HCl 4 mg Q8HR IV 09/24/24 14:00 09/26/24 14:03 4 MG Metoclopramide HCl 5 mg Q8HR IV 09/24/24 14:00 09/26/24 14:03 5 MG Pantoprazole Sodium 40 mg BID IV 09/25/24 22:00 09/26/24 09:43 40 MG Hydralazine HCl 10 mg Q6HP PRN IV 09/25/24 12:45 09/26/24 05:55 10 MG Sucralfate 1 gm QID@0600,1130,1700,2200 PO 09/25/24 17:00 09/26/24 11:47 1 GM Piperacillin Sod/ Tazobactam Sod 100 ml @ 25 mls/hr Q8H IV 09/26/24 00:00 09/26/24 08:57 25 MLS/HR Examination: GENERAL:Normal, GENERAL:Abnormal, NECK:Normal, LUNGS:Normal, CVS:Normal, ABDOMEN:Normal, MSK:Normal, NEURO:Normal laboratory and microbiology Laboratory Tests 09/26/24 13:06 09/25/24 01:32 Test 09/25/24 01:32 Range/Units Serum Glucose 173 H 74-106 mg/dL Problem List/Assessment/Plan Problem List/Assessment/Plan Upper GI bleed likely possibly related to esophageal varices, acute gastritis or hiatal hernia. Nausea and vomiting ? Gastroparesis Acute colitis 2-3 cm sliding-type hiatal hernia acute grade C linear erosive esophagitis distal esophageal ulcers Minimal gastroduodenitis History of upper GI bleed History of esophageal varices Hypertensive urgency CVA with right-sided residual weakness Coronary artery disease PTCA History of alcohol abuse and meth use. History of GI bleed History of chronic pancreatitis Diabetes Hypertension Dyslipidemia Plan/recommended Dr Lucas EGD on 09/25/2023 1. 2-3 cm sliding-type hiatal hernia with the acute grade C linear erosive esophagitis with distal esophageal ulcers extending into 8-10 cm of the esophagus with superficial oozing and increase oozing at biopsy sites 2. Minimal gastroduodenitis otherwise normal examination up to the 2nd and 3rd part of the duodenum Recommendation: 1. Await for biopsy result 2. Will place pt on Protonix 40 mg bid 3. Carafate 1 g p.o. 4 times a day 4. Full liquid diet advance as tolerated 5. DC aspirin NSAIDs smoking alcohol 6. Outpatient follow up with me in 6-8 weeks to review results and discuss further management -continue Protonix 40 mg b.i.d., Carafate 1 g p.o. 4 times daily, follow up in outpatient setting after discharge. -ondansetron and metoclopramide for intractable nausea and vomiting. -continue IV hydration -IV antibiotic as per hospitalist team. -we will continue monitoring this patient Plan discussed with: Patient, Other (RN) DAYTON PEREZ RESIDENT Sep 26, 2024 14:57
--- NOTE | 2024-09-27 10:21 | ECG ---
[facility] Test Date: 2024-09-25 Test Time: 17:48:49 Pat Name: AMADA OCHOA Department: Respiratoy Room: 0219T B Gender: M Client Experience Consultant: : 1985 Requested By: BRADY FALL Order Number: [id number] Reading MD: Daniele Bruno Measurements Intervals [place] Rate: 128 P: 47 ND: 109 QRS: 59 QRSD: 91 T: 257 QT: 374 QTc: 546 Interpretive Statements Sinus tachycardia Atrial premature complex Borderline repolarization abnormality Prolonged QT interval Electronically Signed On 09-28-2024 20:53:34 PST by Daniele Bruno Please click the below link to view image of tracing.
== END 2024-09-26 18:56 | disposition home or self-care (01) | DRG 241 ==
LOC: ER 01:10 → EDBD 01:10 → OVERFLOW 09:04 → TELE-CENTR 09:08
PROVIDERS: ADMIT Internal Medicine; ATTEND Internal Medicine
PROC: 0DB68ZX Excision of Stomach, Via Natural or Artificial Opening Endoscopic, Diagnostic (ICD-10-PCS; 2024-09-25)
PROC: 0DB58ZX Excision of Esophagus, Via Natural or Artificial Opening Endoscopic, Diagnostic (ICD-10-PCS; 2024-09-25)
PROC: 0DB98ZX Excision of Duodenum, Via Natural or Artificial Opening Endoscopic, Diagnostic (ICD-10-PCS; principal; 2024-09-25 14:38)
DX: K29.71 Gastritis, unspecified, with bleeding (principal); K22.11 Ulcer of esophagus with bleeding; F03.90 Unspecified dementia, unspecified severity, without behavioral disturbance, psychotic disturbance, mood disturbance, and anxiety; I69.351 Hemiplegia and hemiparesis following cerebral infarction affecting right dominant side; A04.9 Bacterial intestinal infection, unspecified; R71.0 Precipitous drop in hematocrit; D72.829 Elevated white blood cell count, unspecified; E78.5 Hyperlipidemia, unspecified; K76.0 Fatty (change of) liver, not elsewhere classified; K29.91 Gastroduodenitis, unspecified, with bleeding; K21.9 Gastro-esophageal reflux disease without esophagitis; K31.84 Gastroparesis; K27.9 Peptic ulcer, site unspecified, unspecified as acute or chronic, without hemorrhage or perforation; I25.10 Atherosclerotic heart disease of native coronary artery without angina pectoris; K31.9 Disease of stomach and duodenum, unspecified; I10 Essential (primary) hypertension; K86.1 Other chronic pancreatitis; K44.9 Diaphragmatic hernia without obstruction or gangrene; M19.09 Primary osteoarthritis, other specified site; Z95.5 Presence of coronary angioplasty implant and graft; Z87.891 Personal history of nicotine dependence; Z87.19 Personal history of other diseases of the digestive system; Z87.11 Personal history of peptic ulcer disease; Z83.3 Family history of diabetes mellitus; Z82.49 Family history of ischemic heart disease and other diseases of the circulatory system; R63.6 Underweight; Z68.1 Body mass index [BMI] 19.9 or less, adult; E11.43 Type 2 diabetes mellitus with diabetic autonomic (poly)neuropathy
CPT/HCPCS: 36415; 74176; 80053; 81001; 82150; 82962; 83690; 85014; 85018; 85025; 85610; 85730; 86850; 86900; 86901; 93005; 96365; 96366; 96367; 96368; 96372; 96375; 99291; G0378; J1815; J2003; J2405; J2470; J2543; J2704; Q0162